=== PATIENT | male | born 1970 | race Caucasian/White ===

== ENCOUNTER → 2019-07-19 09:19 | Outpatient (CLI) | payer OTHER, SELFPAY ==
[2019-07-19 12:46] LABS: Absolute Lymphocyte Count 1.46 X10^3/uL (0.83-4.51); Basophil# 0.04 X10^3/uL; Basophil% 0.8 % (0-1); Eosinophil# 0.06 X10^3/uL; Eosinophils% 1.2 % (0-5); Hematocrit 41.1 % (40-54); Hemoglobin 13.6 g/dL (13.0-16.5); Lymphocyte # 1.46 X10^3/ul (4.0); Lymphocyte % 29.8 % (19-41); Mean Corp Hgb Conc 33.1 g/dL (32-36); Mean Corpuscular Hgb 29.4 pg (27.0-32.0); Mean Platelet Vol. 10.9 fl (6.2-12.0); Monocyte# 0.35 X10^3/uL; Monocyte% 7.1 % (0-10); NRBC Flagged by Analyzer 0 % (0-5); Neutrophil # 2.98 X10^3/uL (2.7-7.7); Neutrophil % 60.9 % (47-70); Platelet Count 204 K/mm3 (150-450); RBC Distribution Width CV 12.2 % (11.6-14.6); RBC Distribution Width SD 39.7 fl (35.1-43.9); Red Blood Count 4.62 M/mm3 (4.6-6.2); White Blood Count 4.9 K/mm3 (4.4-11.0)
[2019-07-19 13:11] LABS: ALB/GLOB Ratio 1.4 RATIO (0.9-2.4); AST(SGOT) 24 U/L (15-37); Alanine Aminotransfer ALT/SGPT 41 U/L (16-61); Alkaline Phosphatase 57 U/L (45-117); Anion Gap 6 (5-15); BUN 10 mg/dL (7-18); Calcium,Total 8.6 mg/dL (8.5-10.1); Chloride 108 mmol/L (98-107); Cholesterol 158 mg/dL (200); Creatinine, Serum 0.77 mg/dL (0.70-1.30); EST Glomerular Filtration Rate 113 mL/min (>60); Est Glom Filt Rate - Afr Amer 137 mL/min (>60); Globulin 2.8 g/dL (2.2-4.2); Glucose 102 mg/dL (74-106); High Density Lipoprotein 42 mg/dL; PSA,Total - Annual Screen 1.66 ng/mL (0.00-4.00); Potassium 4.4 mmol/L (3.5-5.1); Protein, Total 6.8 g/dL (6.4-8.2); Sodium Level 141 mmol/L (136-145); Triglycerides 102 mg/dL; Very Low Density Lipoprotein 20 mg/dL (5-40)
[2019-07-19 13:52] LABS: Hemoglobin A1c 5.4 % (4.2-6.3)
== END ==
PROVIDERS: PCP Family Medicine; Visit Provider Family Medicine
DX: Z00.00 Encounter for general adult medical examination without abnormal findings (principal); Z12.5 Encounter for screening for malignant neoplasm of prostate
CPT/HCPCS: 36415; 80053; 80061; 83036; 84153; 85025; G0103

== ENCOUNTER → 2019-11-19 11:23 | Outpatient (CLI) | payer OTHER, SELFPAY ==
[2015-12-24 21:30] VITALS: BMI 28.7
== END ==
PROVIDERS: PCP Family Medicine; Referring Provider Family Medicine; Visit Provider Family Medicine
DX: Z20.828 Contact with and (suspected) exposure to other viral communicable diseases (principal)
CPT/HCPCS: 87635; G2023; U0003

== ENCOUNTER → 2022-08-16 | Outpatient (CLI) | payer OTHER, SELFPAY ==
[2022-08-16 10:23] LABS: Absolute Lymphocyte Count 1.76 X10^3/uL (0.83-4.51); Absolute Neutrophil Count 2.8 X10^3/uL (2.0-7.7); Basophil# 0.03 X10^3/uL; Basophil% 0.6 % (0-1); Eosinophil# 0.08 X10^3/uL; Eosinophils% 1.6 % (0-5); Hematocrit 44.6 % (40-54); Hemoglobin 15.1 g/dL (13.0-16.5); Lymphocyte # 1.76 X10^3/ul (0.83-4.51); Lymphocyte % 34.7 % (19-41); Mean Corp Hgb Conc 33.9 g/dL (32-36); Mean Corpuscular Hgb 30.7 pg (27.0-32.0); Mean Corpuscular Volume 90.7 fL (80-94); Mean Platelet Vol. 10.3 fl (6.2-12.0); Monocyte# 0.41 X10^3/uL; Monocyte% 8.1 % (0-10); NRBC Flagged by Analyzer 0 % (0-5); Neutrophil # 2.79 X10^3/uL (2.7-7.7); Platelet Count 235 K/mm3 (150-450); RBC Distribution Width CV 12.1 % (11.6-14.6); RBC Distribution Width SD 40.3 fl (35.1-43.9); Red Blood Count 4.92 M/mm3 (4.6-6.2); White Blood Count 5.1 K/mm3 (4.4-11.0)
[2022-08-16 11:30] LABS: ALB/GLOB Ratio 1.3 RATIO (0.9-2.4); AST(SGOT) 38 U/L (15-37); Alanine Aminotransfer ALT/SGPT 59 U/L (16-61); Albumin, Serum 4.1 g/dL (3.2-5.0); Alkaline Phosphatase 59 U/L (45-117); Anion Gap 3 (5-15); BUN 11 mg/dL (7-18); BUN/Creat Ratio 14.4 RATIO (10-20); Chloride 105 mmol/L (98-107); Cholesterol 207 mg/dL (200); Creatinine, Serum 0.76 mg/dL (0.70-1.30); EST Glomerular Filtration Rate 114 mL/min (>60); Est Glom Filt Rate - Afr Amer 137 mL/min (>60); Globulin 3.1 g/dL (2.2-4.2); Glucose 102 mg/dL (74-106); High Density Lipoprotein 49 mg/dL; PSA,Total- Diagnostic 2.07 ng/mL (0.0-4.0); Potassium 4.4 mmol/L (3.5-5.1); Protein, Total 7.2 g/dL (6.4-8.2); Sodium Level 134 mmol/L (136-145); Thyroid Stim Hormone (TSH) 2.27 uIU/mL (0.358-3.74); Triglycerides 94 mg/dL; Very Low Density Lipoprotein 19 mg/dL (5-40)
[2022-08-16 11:31] LABS: Vitamin B12 357 pg/mL (211-911); Vitamin D,25 Hydroxy 23.9 ng/mL
[2022-08-20 14:17] LABS: Testosterone Free 5.6 pg/mL (7.2-24.0)
== END | disposition home or self-care (01) ==
PROVIDERS: PCP Family Medicine; Referring Provider Family Medicine; Visit Provider Family Medicine
DX: Z00.00 Encounter for general adult medical examination without abnormal findings (principal); R79.89 Other specified abnormal findings of blood chemistry; R53.83 Other fatigue
CPT/HCPCS: 36415; 80053; 80061; 82306; 82607; 84153; 84402; 84403; 84443; 85025

== ENCOUNTER → 2022-08-27 | Outpatient (CLI) | payer OTHER, SELFPAY ==
[2022-08-27 13:38] LABS: Ferritin 347 ng/mL (26-388); Follicle Stimulating Hormone 6.4 mIU/mL; Luteinizing Hormone 2.1 mIU/mL
[2022-09-02 09:07] LABS: Sex Hormone-binding Globulin 37.3 nmol/L (19.3-76.4); Testosterone, % Free 1.77 % (1.50-4.20); Testosterone, Free 4.66 ng/dL (5.00-21.00); Testosterone, Total 263 ng/dL (264-916)
== END | disposition home or self-care (01) ==
LOC: BFHLAB 08:25
PROVIDERS: PCP Family Medicine; Referring Provider Family Medicine; Visit Provider Family Medicine
DX: R79.89 Other specified abnormal findings of blood chemistry (principal)
CPT/HCPCS: 36415; 82728; 83001; 83002; 84270; 84402; 84403

== ENCOUNTER → 2023-01-23 | Outpatient (CLI) | payer OTHER, SELFPAY ==
--- NOTE | 2023-01-26 14:44 | STRESSREP ---
Stress Test Report Date: 01/23/2023 Procedure: Exercise tolerance test Indications: Fatigue Consent: Per the patient Procedure: The patient exercised on a Jerzy protocol for 13 minutes and 28 seconds achieving a peak heart rate of 179 bpm (107% predicted maximal heart rate) with a peak blood pressure 170/90 mmHg and a peak MET capacity of approximately 17.2 MET's. The baseline ECG demonstrated normal sinus rhythm. The peak exercise ECG demonstrated no significant ischemic changes. [There were no cardiac dysrhythmias pretest, during exercise, or recovery]. The functional capacity was considered excellent for age. The patient had no complaint of chest discomfort during exercise or recovery. The examination was discontinued secondary to []. Impression: 1. Technically adequate (percent predicted maximal heart rate greater than 85%) exercise tolerance test 2. Stress test is negative for exercise-induced chest pain. 3. Stress test test is negative for exercise-induced EKG changes of ischemia. 4. Functional capacity is excellent for age This note was generated with At[employer] software. It may contain incorrect words, spelling, and punctuation that were not noted in checking the note before signing.
== END | disposition home or self-care (01) ==
LOC: CVS 12:18
PROVIDERS: PCP Family Medicine; Referring Provider Family Medicine; Visit Provider Family Medicine
DX: R53.83 Other fatigue (principal); I10 Essential (primary) hypertension; Z82.49 Family history of ischemic heart disease and other diseases of the circulatory system
CPT/HCPCS: 93017

== ENCOUNTER → 2023-08-20 | Outpatient (CLI) | payer OTHER, SELFPAY ==
[2023-08-20 12:19] LABS: Basophil# 0.05 X10^3/uL; Basophil% 0.9 % (0-1); Eosinophil# 0.19 X10^3/uL; Eosinophils% 3.4 % (0-5); Hematocrit 44.2 % (40-54); Hemoglobin 14.4 g/dL (13.0-16.5); Mean Corp Hgb Conc 32.6 g/dL (32-36); Mean Corpuscular Hgb 29.3 pg (27.0-32.0); Mean Corpuscular Volume 89.8 fL (80-94); Mean Platelet Vol. 10.8 fl (6.2-12.0); Monocyte# 0.45 X10^3/uL; Monocyte% 8.1 % (0-10); NRBC Flagged by Analyzer 0 % (0-5); Neutrophil # 2.98 X10^3/uL (2.7-7.7); Neutrophil % 53.2 % (47-70); Platelet Count 232 K/mm3 (150-450); RBC Distribution Width CV 12.2 % (11.6-14.6); RBC Distribution Width SD 39.9 fl (35.1-43.9); Red Blood Count 4.92 M/mm3 (4.6-6.2); White Blood Count 5.6 K/mm3 (4.4-11.0)
[2023-08-20 12:40] LABS: ALB/GLOB Ratio 1.2 RATIO (0.9-2.4); AST(SGOT) 31 U/L (15-37); Alanine Aminotransfer ALT/SGPT 48 U/L (16-61); Albumin, Serum 3.8 g/dL (3.2-5.0); Alkaline Phosphatase 56 U/L (45-117); Anion Gap 4 (5-15); BUN 9 mg/dL (7-18); BUN/Creat Ratio 12.7 RATIO (10-20); Calcium,Total 9.1 mg/dL (8.5-10.1); Chloride 106 mmol/L (98-107); Cholesterol 179 mg/dL (200); Creatinine, Serum 0.71 mg/dL (0.70-1.30); EST Glomerular Filtration Rate 123 mL/min (>60); Est Glom Filt Rate - Afr Amer 149 mL/min (>60); Globulin 3.2 g/dL (2.2-4.2); Glucose 109 mg/dL (74-106); High Density Lipoprotein 40 mg/dL; PSA,Total - Annual Screen 4.53 ng/mL (0.00-4.00); Potassium 4.6 mmol/L (3.5-5.1); Sodium Level 137 mmol/L (136-145); Triglycerides 106 mg/dL; Very Low Density Lipoprotein 21 mg/dL (5-40)
[2023-08-20 12:47] LABS: Hemoglobin A1c 5.2 % (3.8-5.6)
[2023-08-21 14:11] LABS: Lipoprotein A 28.6 nmol/L (<75.0)
== END | disposition home or self-care (01) ==
LOC: BFHLAB 08:50
PROVIDERS: PCP Family Medicine; Referring Provider Family Medicine; Visit Provider Family Medicine
DX: Z00.00 Encounter for general adult medical examination without abnormal findings (principal); Z12.5 Encounter for screening for malignant neoplasm of prostate; E29.1 Testicular hypofunction; Z82.49 Family history of ischemic heart disease and other diseases of the circulatory system
CPT/HCPCS: 36415; 80053; 80061; 83036; 83695; 84153; 84403; 85025; G0103

== ENCOUNTER → 2023-08-22 | Outpatient (CLI) | payer OTHER, SELFPAY | END | disposition home or self-care (01) | LOC: LAB.FUTURE 13:12 | PROVIDERS: PCP Family Medicine; Visit Provider Family Medicine | DX: E29.1 Testicular hypofunction (principal); R97.20 Elevated prostate specific antigen [PSA] ==

== ENCOUNTER → 2023-11-03 | Outpatient (CLI) | payer OTHER, SELFPAY ==
[2023-11-03 12:29] LABS: PSA,Total- Diagnostic 1.85 ng/mL (0.0-4.0)
== END | disposition home or self-care (01) ==
LOC: MTLAB 09:12
PROVIDERS: PCP Family Medicine; Referring Provider Family Medicine; Visit Provider Family Medicine
DX: E29.1 Testicular hypofunction (principal); R97.20 Elevated prostate specific antigen [PSA]
CPT/HCPCS: 36415; 84153; 84403

== ENCOUNTER 2023-12-24 17:33 | Inpatient (IN) | payer OTHER, SELFPAY ==
[2023-12-24] VITALS (10 sets, daily range): BP systolic 118–155; BP diastolic 83–100; PULSE 64–85; RESP 14–18; TEMP 36.1–37.3; O2SAT 96–100; BMI 30.3; BMI 29.8
--- NOTE | 2023-12-24 17:39 | NURSING ---
NO OLD EKG
--- NOTE | 2023-12-24 18:37 | ED.VIS.CHEST ---
HPI History of Present Illness Chief Complaint: Chest Pain Informant: patient Onset/Context/Timing Onset: Today Activity at onset: sudden Timing: Continuous Quality: Positive for Burning and Tightness Location: Left Parasternal, Left Chest and - (Left axilla, left upper arm, and neck) Worsened By: Nothing Relieved By: Nothing Associated Symptoms: Negative for Nausea, Vomiting, Diaphoresis, Dyspnea, Cough, Fever, Lightheadedness, Acid Reflux or Palpitations Narrative Narrative: Patient presents with chest pain that began today. Patient states it began rather suddenly. Patient states he noticed it in his left arm and axilla initially. Patient states that it progressed to the left side of his chest. Patient states it radiates up into his neck. Patient describes it as burning and tightness. Patient states nothing makes it better and nothing makes it worse. Patient states he checked his blood pressure at home and noticed that it was high. Patient denies any shortness of breath or cough. Patient denies any nausea or vomiting. Patient denies any lightheadedness or diaphoresis. Patient denies any palpitations. CVD Risk Factors: Positive for Hypertension and Family History 1' </=55; Negative for Diabetes, Hypercholesterolemia or Smoking PE Risk Factors: Negative for Recent Travel/Surgery, Recent Immobilization, Prior DVT or PE, Cancer or OCP + Smoking + >/=35 [facility] Medical History (Updated 12/24/23 @ 22:[address] Sonali Flores DO) Low testosterone Hypertension Home Medications ?Medication ?Instructions ?Recorded ?Last Taken ?Type lisinopril 10 mg tablet 10 mg PO DAILY 12/24/23 Unknown History testosterone 2 - 3 pump topical DAILY 12/24/23 Unknown History Allergy/AdvReac Type Severity Reaction Status Date / Time prochlorperazine (From AdvReac Other Verified 12/24/23 17:33 Compazine) Surgical History (Updated 12/24/23 @ 18:[address] Carlin Haywood DO) S/P LASIK surgery Social History Smoking Status: Never smoker ROS ROS ED Constitutional Constitutional ED: Denies chills or fever(s) Eyes Eyes: Denies blurry vision or change in vision ENT ENT ED: Denies rhinorrhea or sore throat Cardiovascular Cardiovascular: Reports chest pain; Denies palpitations Respiratory/Chest Respiratory/Chest: Denies cough or dyspnea Gastrointestinal Gastrointestinal: Denies nausea or vomiting Genitourinary Genitourinary ED: Denies dysuria or hematuria Musculoskeletal Musculoskeletal: Reports neck pain; Denies back pain Integumentary Denies abscess or rash Neurologic Neurologic: Denies headache(s) or weakness Allergic/Immunologic Allergic/Immunologic ED: Denies mouth swelling or urticaria EXAM Physical Exam Const Vital Signs: 12/24/23 17:33 12/24/23 18:33 12/24/23 19:00 Temperature 97 F L Temperature Source Temporal Pulse Rate 85 79 69 Respiratory Rate 18 18 Blood Pressure 145/95 H 155/100 H 125/94 H Blood Pressure Mean 111 118 104 Pulse Ox 100 97 98 Oxygen Delivery Method Room Air Room Air Room Air 12/24/23 19:14 12/24/23 20:00 12/24/23 21:00 Temperature Temperature Source Pulse Rate 70 74 Respiratory Rate 18 16 Blood Pressure 129/92 H 118/90 H Blood Pressure Mean 104 99 Pulse Ox 98 98 96 Oxygen Delivery Method Room Air Room Air Room Air Positive well nourished and well developed General Appearance ED: well developed and NAD HEENT Reports moist mucous membranes Neck supple and no JVD Resp normal respiratory effort and clear to auscultation bilaterally Cardio regular rate and regular rhythm GI soft to palpation, non-tender and non-distended Extremity normal to inspection General Extremety ED: Negative for edema or tenderness General Extremity: Negative for edema Neuro oriented x3, CN's II-XII intact bilaterally and no sensory deficits noted Sensorium / Orientation: awake and alert Motor Exam: strength 5/5 throughout Psych mental status grossly normal Heart Score History: Moderately Suspicious ECG: Normal Age: >45 - <65 years Risk Factors: 1 or 2 Risk Factors Troponin: >1 - <3 Normal Limit Score: 4 MDM MDM MDM Narrative Medical decision making narrative: Differential diagnose includes cardiac dysrhythmia, cardiac ischemia, electrolyte abnormality, pneumonia, pneumothorax, hypertension, GERD, and anxiety. EKG will be obtained to assess for cardiac dysrhythmia and cardiac ischemia. Chest x-ray will be obtained to assess for pneumonia and pneumothorax. CBC will be obtained to assess for leukocytosis and anemia. Basic metabolic profile will be obtained to assess for electrolyte abnormality and renal function. High-sensitivity troponin will be obtained to assess for cardiac ischemia. 2-hour repeat high-sensitivity troponin will be obtained to assess for ongoing cardiac ischemia. Lab Data Attestation: I reviewed the patient's lab results. Lab results narrative: CBC was reviewed and was within normal limits. Basic metabolic profile was reviewed. Potassium was slightly low at 3.4. The remainder is within normal limits. Initial high-sensitivity troponin was reviewed and was normal at 8. 2-hour repeat high-sensitivity troponin was reviewed and was elevated at 173. Labs: Laboratory Results - last 24 hr 12/24/23 12/24/23 17:44 20:55 WBC 8.5 RBC 4.89 Hgb 14.4 Hct 43.0 MCV 87.9 MCH 29.4 MCHC 33.5 RDW Std Deviation 38.3 RDW Coeff of Antolin 11.9 Plt Count 245 MPV 11.0 Immature Gran % (Auto) 0.200 Neut % (Auto) 57.8 Lymph % (Auto) 32.2 [place] % (Auto) 7.3 Eos % (Auto) 1.9 Baso % (Auto) 0.6 Absolute Neuts (auto) 4.9 Absolute Lymphs (auto) 2.74 Nucleated RBC % 0 Sodium 138 Potassium 3.4 L Chloride 104 Carbon Dioxide 29.0 Anion Gap 5 BUN 14 Creatinine 0.84 Estim Creat Clear Calc 116.88 Est GFR (MDRD) Af Amer 121 Est GFR (MDRD) Non-Af 100 BUN/Creatinine Ratio 16.6 Glucose 111 H Calcium 9.5 Troponin I High Sens 8 173 H* Radiography Chest X-Ray - ED: 1 View, Read by ED Physician, Read by Radiologist and No Acute Disease Diagnostic Testing: Clinical Impression(s) from Imaging Studies Chest X-Ray 12/24/23 18:54 IMPRESSION: Normal x-ray examination of the chest. Electronically Signed: Kush Goyal MD at 19:36 EDT , Portable 1 view chest x-ray was obtained. On my independent interpretation, lung santos are clear. There is normal cardiac silhouette. Bony thorax is normal. There is no acute process noted. Radiologist also interpreted the x-ray and agrees. EKG Initial EKG: Attestation: I personally reviewed and interpreted this EKG as follows: Interpretation: Sinus Rhythm (77) and No Acute Injury Pattern Comments: EKG was obtained. On my independent interpretation, it showed a normal sinus rhythm with a rate of 77. ND interval, QRS interval, and QTc intervals were all normal. [place] was normal. There are no acute ST or T wave changes. Prior EKG tracings: not available for review Prior: No Prior Management Discussion w/another healthcare provider: Hospitalist (Dr. Flores) and Loading Inspector (Dr. Martinez) Treatment and Re-Evaluation :: Patient was given aspirin here. Patient did have a stress test approximately 11 months ago which was normal. Patient was advised of his findings. Patient still denies any pain, pressure, heaviness, tightness, or discomfort of any kind at this time. Patient has a HEART score of 4. Case was discussed with Dr. Martinez, wood grainer on-call. He recommended starting the patient on heparin. Case was discussed with the hospitalist for admission. She will admit the patient to PCU. Patient understood and was agreeable with the plan. All questions were answered. Discharge Plan Dx/Rx/DC Orders Clinical Impression: Chest pain, Hypertension, Elevated troponin Disposition Disposition: Acute Care Hospital [facility]
--- NOTE | 2023-12-24 18:44 | EKG12_ITS ---
Test Reason : CP Blood Pressure : / mmHG Vent. Rate : 077 BPM Atrial Rate : 077 BPM P-R Int : 166 ms QRS Dur : 098 ms QT Int : 362 ms P-R-T Axes : 040 033 020 degrees QTc Int : 409 ms Normal sinus rhythm Normal ECG Confirmed by RICKEY JACKSON, GABBY ([id number]), film and video editor [employer] ([id number]) on 12/26/2023 6:49:47 AM Referred By: MARY/YOLY Confirmed By:VARGHESE LANG MD
[2023-12-24] MEDS: Aspirin 81 MG TAB.CHEW 324 MG PO (18:51)
[2023-12-24 18:54] LABS: Absolute Lymphocyte Count 2.74 X10^3/uL (0.83-4.51); Absolute Neutrophil Count 4.9 X10^3/uL (2.0-7.7); Basophil# 0.05 X10^3/uL; Basophil% 0.6 % (0-1); Eosinophil# 0.16 X10^3/uL; Eosinophils% 1.9 % (0-5); Hemoglobin 14.4 g/dL (13.0-16.5); Lymphocyte # 2.74 X10^3/ul (0.83-4.51); Lymphocyte % 32.2 % (19-41); Mean Corp Hgb Conc 33.5 g/dL (32-36); Mean Corpuscular Hgb 29.4 pg (27.0-32.0); Mean Corpuscular Volume 87.9 fL (80-94); Monocyte# 0.62 X10^3/uL; Monocyte% 7.3 % (0-10); NRBC Flagged by Analyzer 0 % (0-5); Neutrophil # 4.92 X10^3/uL (2.7-7.7); Neutrophil % 57.8 % (47-70); Platelet Count 245 K/mm3 (150-450); RBC Distribution Width CV 11.9 % (11.6-14.6); RBC Distribution Width SD 38.3 fl (35.1-43.9); Red Blood Count 4.89 M/mm3 (4.6-6.2); White Blood Count 8.5 K/mm3 (4.4-11.0)
--- NOTE | 2023-12-24 18:54 | RAD_ITS ---
STUDY: X-RAY CHEST REASON FOR EXAM: Male, 53 years old. chest pain TECHNIQUE: Single AP portable view of the chest. COMPARISON: None. FINDINGS: The lungs are clear and expanded. There is no demonstrated pleural abnormality. Normal size heart. Normal mediastinum and don. Normal visualized pulmonary arteries. Normal visualized aortic arch and descending thoracic aorta. Normal visualized thoracic spine. Normal visualized ribs, clavicles, and shoulders. There is no demonstrated abnormality of the visualized soft tissue structures of the upper abdomen. RAD/Chest 1 View (Portable) IMPRESSION: Normal x-ray examination of the chest. Electronically Signed: Kush Goyal MD at 19:36 EDT ,
[2023-12-24 19:12] LABS: Anion Gap 5 (5-15); BUN 14 mg/dL (7-18); BUN/Creat Ratio 16.6 RATIO (10-20); Calcium,Total 9.5 mg/dL (8.5-10.1); Chloride 104 mmol/L (98-107); Creatinine, Serum 0.84 mg/dL (0.70-1.30); EST Glomerular Filtration Rate 100 mL/min (>60); Est Glom Filt Rate - Afr Amer 121 mL/min (>60); Estimated Creatinine Clearance 116.88 ml/min; Glucose 111 mg/dL (74-106); Potassium 3.4 mmol/L (3.5-5.1); Sodium Level 138 mmol/L (136-145); Troponin-I HS (w/2H Reflex) 8 pg/mL (3.0-78.0)
[2023-12-24 20:51] LABS: Reflex Troponin-HS? (from REC) Y
[2023-12-24 21:40] LABS: Troponin-I HS 173 pg/mL (3.0-78.0)
[2023-12-24] MEDS: Heparin Injection (Vial) 5,000 UNIT/ML VIAL 4000 UNIT IV (22:46)
[2023-12-24] MEDS: HEPARIN/D5w 25,000 UNITS 25,000 UNITS/250 ML IV.SOLN. 10 UNITS CONT INF (22:49)
--- NOTE | 2023-12-24 22:54 | PCM.HP.STD ---
HPI - General General Date of Admission: 12/24/23 Date of Service: 12/17/23 Chief Complaint: Chest pain HPI Narrative ABDELRAHMAN CHA, is a 53 M who presented to the emergency department at [facility] on 12/24/2023 with a chief complaint of chest pain. 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 Initially, was chest pain and then he noticed radiation to his left arm. He stated that his left arm pain got quite intense. He had some associated shortness of breath and that he had trouble taking a deep breath. He denies any nausea, vomiting or diaphoresis. He went home from work and took his blood pressure and it was noted to be markedly high compared to his typical baseline. He stated he changed close and came to the emergency department. He currently is chest pain-free. He has an extremely strong family history of coronary disease in his father and cerebrovascular disease on his mother side. His brother from a neuroendocrine tumor at 44 years old. He states his father had his first stenting he believes in his 50s. He does not smoke. Vital signs on presentation showed temperature of 97, heart rate 85, respiratory rate 18, blood pressure is 145/95 pulse ox 100% on room air. Repeat blood pressure after being here sometime is not 118/90. CBC is unremarkable. Coags are pending. Chemistry panel shows mild hypokalemia with potassium of 3.5 but is otherwise unremarkable. Blood glucose was 111 with a recent hemoglobin A1c in August of 5.2. Initial troponin was 8 however delta troponin went up to 173. EKG shows normal sinus rhythm with normal intervals and no ST-T wave changes concerning for acute ischemia. Chest x-ray is unremarkable. Heparin drip was started by the emergency department and aspirin was given. Case was discussed with Dr. Martinez and he will see the patient for probable cardiac catheterization tomorrow. [facility], [facility] Medical History Low testosterone Hypertension Home Medications ?Medication ?Instructions ?Recorded ?Last Taken ?Type lisinopril 10 mg tablet 10 mg PO DAILY 12/24/23 Unknown History testosterone 2 - 3 pump topical DAILY 12/24/23 Unknown History Allergy/AdvReac Type Severity Reaction Status Date / Time prochlorperazine (From AdvReac Other Verified 12/24/23 17:33 Compazine) Family History (Updated 12/24/23 @ 23:[address] Sonali Flores DO) Brother No problems noted. Other CVA (cerebral vascular accident) Cancer Heart disease Hypertension Surgical History S/P LASIK surgery Social History (Updated 12/24/23 @ 23:[address] Sonali Flores DO) household members: spouse housing: house Smoking Status: Never smoker alcohol intake: current alcohol intake frequency: holidays/special occasions only substance use type: does not use ROS Constitutional Constitutional: Denies anorexia, change in weight, chills, fatigue, fever(s), malaise, night sweats, weakness or other Eyes Eyes: Denies blurry vision, change in eye color, change in vision, discharge from eye(s), double vision, erythema, eye pain, loss of vision or other ENT HEENT: Denies abnormal hearing, dysphagia, ear pain, epistaxis, headache(s), hearing loss, nasal congestion, nasal discharge, post nasal drip, sinus pressure, sore throat or other Cardiovascular Cardiovascular: Reports chest pain and other Details: Left arm pain ; Denies claudication, dyspnea on exertion, edema, lightheadedness, orthopnea, palpitations, paroxysmal nocturnal dyspnea, rapid heart rate or syncope Respiratory/Chest Respiratory/Chest: Reports shortness of breath at rest; Denies cough, dyspnea, excessive phlegm production, hemoptysis, productive cough, shortness of breath with exertion, wheezing or other Gastrointestinal Gastrointestinal: Denies abdominal pain, coffee ground emesis, constipation, diarrhea, dyspepsia, hematemesis, hematochezia, loose stools, melena, nausea, vomiting or other Genitourinary Genitourinary: Denies burning urination, difficulty urinating, dysuria, hematuria, nocturia, urinary frequency, urinary hesitancy, urinary incontinence, urinary urgency or other Musculoskeletal Musculoskeletal: Denies arthralgias, back pain, joint pain, joint stiffness, joint swelling, myalgias, neck pain or other Neurologic Neurologic: Denies abnormal gait, abnormal speech, confusion, disequilibrium, dizziness, focal weakness, headache(s), numbness, paresthesias, seizure-like activity, seizures, syncope, tingling, tremor(s) or other Psychiatric Psychiatric: Denies anxiety, depression, homicidal ideation, suicidal ideation or other Endocrine Endocrinology: Denies change in body appearance, cold intolerance, excessive sweating, heat intolerance, polydipsia, polyuria or other Hematologic/Lymphatic Hematologic/Lymphatic: Denies anemia, easy bleeding, easy bruising, lymphadenopathy or other Allergic/Immunologic Allergic/Immunologic: Denies rhinitis, hives, eczemia, asthma or other Vital Signs Vital Signs Vital Signs: 12/24/23 17:33 12/24/23 18:33 12/24/23 19:00 Temperature 97 F L Temperature Source Temporal Pulse Rate 85 79 69 Respiratory Rate 18 18 Blood Pressure 145/95 H 155/100 H 125/94 H Blood Pressure Mean 111 118 104 Pulse Ox 100 97 98 Oxygen Delivery Method Room Air Room Air Room Air 12/24/23 19:14 12/24/23 20:00 12/24/23 21:00 Temperature Temperature Source Pulse Rate 70 74 Respiratory Rate 18 16 Blood Pressure 129/92 H 118/90 H Blood Pressure Mean 104 99 Pulse Ox 98 98 96 Oxygen Delivery Method Room Air Room Air Room Air 12/24/23 22:00 Temperature Temperature Source Pulse Rate 79 Respiratory Rate 16 Blood Pressure 144/85 H Blood Pressure Mean 104 Pulse Ox 98 Oxygen Delivery Method Room Air Weight Weight: 96 kg Body Mass Index (BMI) 30.3 Physical Exam Const alert, oriented x3, no apparent distress and well nourished; Negative for average body habitus Constitutional Narrative: Obese, middle-aged, white male, sitting up in bed, appears comfortable, nontoxic HEENT normocephalic, head/scalp atraumatic, hearing grossly normal bilaterally and moist oral mucous membranes HEENT Narrative: Mallampati 2, no thrush, dentition is good Eyes PERRL and EOMs intact bilaterally Eyes Narrative: No scleral icterus Neck no lymphadenopathy and supple Neck Narrative: Trachea midline, no thyroid enlargement Resp normal respiratory effort, no retractions, no use of accessory muscles and clear to auscultation bilaterally Auscultation: Negative for rales, rhonchi or wheezes Cardio regular rate, regular rhythm, S1 normal heart sound, S2 normal heart sound, no murmurs, no rub, no gallops and no clicks GI normal to inspection, nondistended, normoactive bowel sounds, soft to palpation and non-tender Extremity no clubbing, cyanosis or edema Extremity Narrative: Pedal pulses are 2+ Neuro oriented x3 and moves all extremities Speech: speech normal Psych affect normal Psych Narrative: Eye contact is good patient interacts appropriately Results Lab / Micro Data 12/24/23 17:44 12/24/23 17:44 Labs: Laboratory Results - last 24 hr 12/24/23 17:44: WBC 8.5, RBC 4.89, Hgb 14.4, Hct 43.0, MCV 87.9, MCH 29.4, MCHC 33.5, RDW Std Deviation 38.3, RDW Coeff of Antolin 11.9, Plt Count 245, MPV 11.0, Immature Gran % (Auto) 0.200, Neut % (Auto) 57.8, Lymph % (Auto) 32.2, [place] % (Auto) 7.3, Eos % (Auto) 1.9, Baso % (Auto) 0.6, Absolute Neuts (auto) 4.9, Absolute Lymphs (auto) 2.74, Nucleated RBC % 0, Sodium 138, Potassium 3.4 L, Chloride 104, Carbon Dioxide 29.0, Anion Gap 5, BUN 14, Creatinine 0.84, Estim Creat Clear Calc 116.88, Est GFR (MDRD) Af Amer 121, Est GFR (MDRD) Non-Af 100, BUN/Creatinine Ratio 16.6, Glucose 111 H, Calcium 9.5, Troponin I High Sens 8 12/24/23 20:55: Troponin I High Sens 173 H* Imaging Radiology Impression Chest X-Ray 12/24/23 18:54 IMPRESSION: Normal x-ray examination of the chest. Electronically Signed: Kush Goyal MD at 19:36 EDT , Assessment & Plan Assessment/Plan (1) Chest pain: (2) Elevated troponin: (3) Hypokalemia: PLAN: Plan NSTEMI -Patient with very strong history of coronary disease in his father at a young age -Patient with chest pain and initial troponin of 8 with a delta of 173 -EKG without changes -Full dose aspirin given the emergency department and heparin drip initiated -Will continue heparin drip -Aspirin 81 mg daily -High intensity of statin -Start metoprolol 25 mg p.o. twice daily and continue home lisinopril -Check lipids -Patient had recent hemoglobin A1c 08/2023 and it was 5.2 -Check echocardiogram -Cardiology consult-ED discussed with Dr. Martinez prior to admission Hypokalemia -Potassium was 3.4 on admission -Replete with 40 mill equivalents p.o. potassium -Repeat lab in a.m. -Check a.m. magnesium level Hypertension -Continue home lisinopril 10 mg daily -Add metoprolol 25 mg p.o. twice daily -Monitor while hospitalized Low testosterone -Hold home topical testosterone DVT prophylaxis -Heparin drip CODE STATUS Full code Charges/Coding Visit Charges Inpatient E&M: 97105 Init Hosp L2
[2023-12-24 23:23] LABS: International Normalized Ratio 1.1; Prothrombin Time (Protime)PT. 14.6 SECONDS (11.7-14.9)
[2023-12-24 23:24] LABS: Partial Thromboplast Time 26.8 Seconds (24.1-36.2)
--- NOTE | 2023-12-24 23:34 | EKG12_ITS ---
Test Reason : CP ADMIT Blood Pressure : / mmHG Vent. Rate : 072 BPM Atrial Rate : 072 BPM P-R Int : 176 ms QRS Dur : 096 ms QT Int : 386 ms P-R-T Axes : 047 038 016 degrees QTc Int : 422 ms Normal sinus rhythm Normal ECG When compared with ECG of 24-DEC-2023 17:38, MANUAL COMPARISON REQUIRED, DATA IS UNCONFIRMED Confirmed by RICKEY JACKSON, GABBY ([id number]), editorial intern [employer] ([id number]) on 12/26/2023 7:16:26 AM Referred By: Confirmed By:VARGHESE LANG MD
[2023-12-25] VITALS (10 sets, daily range): BP systolic 113–148; BP diastolic 82–90; PULSE 69–77; RESP 12–22; TEMP 36.7–36.8; O2SAT 96–98
[2023-12-25] MEDS: Potassium Chloride Oral Tablet 20 MEQ 40 MEQ PO (00:02)
[2023-12-25 01:02] LABS: Troponin-I HS 6914 pg/mL (3.0-78.0)
[2023-12-25 04:58] LABS: Absolute Lymphocyte Count 2.82 X10^3/uL (0.83-4.51); Basophil# 0.04 X10^3/uL; Basophil% 0.5 % (0-1); Eosinophil# 0.14 X10^3/uL; Eosinophils% 1.9 % (0-5); Hematocrit 41.2 % (40-54); Lymphocyte # 2.82 X10^3/ul (0.83-4.51); Lymphocyte % 37.4 % (19-41); Mean Corpuscular Hgb 29.9 pg (27.0-32.0); Mean Corpuscular Volume 87.8 fL (80-94); Mean Platelet Vol. 10.3 fl (6.2-12.0); Monocyte% 6.6 % (0-10); NRBC Flagged by Analyzer 0 % (0-5); Neutrophil # 4.03 X10^3/uL (2.7-7.7); Neutrophil % 53.3 % (47-70); Platelet Count 220 K/mm3 (150-450); RBC Distribution Width SD 38.3 fl (35.1-43.9); Red Blood Count 4.69 M/mm3 (4.6-6.2); White Blood Count 7.6 K/mm3 (4.4-11.0)
[2023-12-25 05:08] LABS: Partial Thromboplast Time 42.9 Seconds (24.1-36.2)
[2023-12-25 05:16] LABS: ALB/GLOB Ratio 1.4 RATIO (0.9-2.4); AST(SGOT) 51 U/L (15-37); Alanine Aminotransfer ALT/SGPT 43 U/L (16-61); Albumin, Serum 3.7 g/dL (3.2-5.0); Alkaline Phosphatase 49 U/L (45-117); Anion Gap 5 (5-15); BUN 10 mg/dL (7-18); BUN/Creat Ratio 15.5 RATIO (10-20); Calcium,Total 9.1 mg/dL (8.5-10.1); Chloride 109 mmol/L (98-107); Cholesterol 176 mg/dL (200); Creatinine, Serum 0.65 mg/dL (0.70-1.30); EST Glomerular Filtration Rate 136 mL/min (>60); Est Glom Filt Rate - Afr Amer 165 mL/min (>60); Globulin 2.7 g/dL (2.2-4.2); Glucose 112 mg/dL (74-106); High Density Lipoprotein 46 mg/dL; Potassium 3.7 mmol/L (3.5-5.1); Protein, Total 6.4 g/dL (6.4-8.2); Sodium Level 140 mmol/L (136-145); Triglycerides 107 mg/dL; Very Low Density Lipoprotein 21 mg/dL (5-40)
--- NOTE | 2023-12-25 05:55 | ECHOCS_ITS ---
Reason For Study: CHEST PAIN Procedure This was a 2D Doppler, Color Flow transthoracic echocardiogram. The study was technically difficult. Due to poor accoustic windows. Contrast injection was performed. Exam performed portable in patient room. Left Ventricle Normal LV size. The estimated ejection fraction is 55 %. No evidence for diastolic dysfunction. No regional wall motion abnormalities noted. Right Ventricle Normal RV size. Normal systolic function. Atria The left and right atria are normal. Aneurysmal atrial septum. No doppler evidence for ASD. Bubble contrast study negative for right to left interatrial shunt. Mitral Valve There is mild to moderate mitral annular calcification. There is no mitral valve stenosis. No mitral valve insufficiency. Tricuspid Valve There is no tricuspid stenosis. Pulmonary artery systolic pressure is 25 mmHg. Trivial tricuspid valve insufficiency. Aortic Valve Trisinus/trileaflet aortic valve. There is no aortic stenosis. No aortic valve insufficiency. Pulmonic Valve There is no pulmonic valvular stenosis. Trivial pulmonic valve insufficiency. Great Vessels Normal aortic root. Pericardium/Pleural No pericardial effusion. Medication Diluted definity 2.0ml given slow IV push to enhance endocardial definition. Performed a rapid injection of agitated mix of 9 cc saline and 1cc air to assess for atrial septal defect. MMode/2D Measurements & Calculations LVIDd: 5.6 cm IVSd: 0.89 cm Ao root diam: 3.5 cm LVIDs: 3.5 cm LVPWd: 0.93 cm RVDd: 3.3 cm FS: 37.9 % LAV(MOD-bp): 56.2 ml LVAd ap4: 31.9 cm2 LVAd ap2: 25.3 cm2 LAV(MOD-bp) Indexed: 26.4 ml/m2 LVLd ap4: 8.4 cm LVLd ap2: 8.5 cm LAV(MOD-sp2): 64.5 ml EDV(MOD-sp4): 101.7 ml EDV(MOD-sp2): 62.1 ml LAV(MOD-sp4): 50.3 ml EDV(sp4-el): 102.3 ml EDV(sp2-el): 63.5 ml LVAs ap4: 18.9 cm2 LVAs ap2: 15.0 cm2 LVLs ap4: 6.9 cm LVLs ap2: 6.8 cm ESV(MOD-sp4): 43.8 ml ESV(MOD-sp2): 26.8 ml ESV(sp4-el): 44.1 ml ESV(sp2-el): 28.0 ml EF(MOD-sp4): 56.9 % EF(MOD-sp2): 56.8 % EF(sp4-el): 56.9 % SV(MOD-sp4): 57.9 ml SV(MOD-sp2): 35.3 ml SV(sp4-el): 58.2 ml LA A4 area: 18.2 cm2 LA dimension(2D): 3.4 cm RA A4 area: 13.5 cm2 TAPSE: 2.2 cm Time Measurements MV dec time: 0.18 sec Doppler Measurements & Calculations MV E max juan j: 59.9 cm/sec Lat Peak E' Juan J: 7.7 cm/sec Med Peak E' Juan J: 8.0 cm/sec MV A max juan j: 56.9 cm/sec E/E' lat: 7.8 E/E' med: 7.5 MV E/A: 1.1 MV V2 max: 60.7 cm/sec MV P1/2t max juan j: 63.6 cm/sec Ao V2 max: 110.8 cm/sec MV max P.5 mmHg MV P1/2t: 57.2 msec Ao max P.9 mmHg MV V2 mean: 35.3 cm/sec Ao V2 mean: 79.5 cm/sec MV mean P.58 mmHg MV dec slope: 326.0 cm/sec2 Ao mean P.9 mmHg MV V2 VTI: 16.9 cm MVA(P1/2t): 3.8 cm2 Ao V2 VTI: 24.5 cm AV (velocity ratio): 0.74 LV V1 max: 87.5 cm/sec PA V2 max: 100.6 cm/sec PI dec slope: 84.3 cm/sec2 LV V1 max P.1 mmHg PA V2 mean: 71.1 cm/sec LV V1 mean P.6 mmHg LV V1 mean: 59.7 cm/sec LV V1 VTI: 18.2 cm TR max juan j: 225.3 cm/sec TR max P.3 mmHg ECHO/Echo Complete W/ Contrast Interpretation Summary The estimated ejection fraction is 55 %. No evidence for diastolic dysfunction. Ordering Physician: Sonali Flores Referring Physician: Jamarcus Tracey Performed By: Teresita Morley, MATTHEW, RVT
[2023-12-25] MEDS: Aspirin E.C. 81 MG Tablet PO (06:19)
[2023-12-25] MEDS: Lisinopril 10 MG Tablet PO (06:19)
[2023-12-25] MEDS: Metoprolol Tartrate 25 MG Tablet PO (06:19)
--- NOTE | 2023-12-25 06:47 | PN.HOSP_ITS ---
Reason for Visit Reason for Visit: Diagnoses Hypokalemia (12/24/23) Chest pain, unspecified (12/24/23) Other specified abnormal findings of blood chemistry (12/24/23) Objective Data Objective Data Vital Signs: Vital Signs Temp Pulse Resp BP Pulse Ox O2 Del Method 98.2 F 77 16 131/90 H 97 Room Air 12/25/23 06:25 12/25/23 06:25 12/25/23 06:25 12/25/23 06:25 12/25/23 06:25 12/25/23 06:25 Oxygen Delivery Method Room Air Weight: 207 lb 14.334 oz Body Mass Index (BMI) 29.8 Intake & Output: Intake and Output for Last 24 Hours 12/23/23 12/24/23 12/25/23 23:59 23:59 23:59 Intake Total 75.5 / 75.5 Balance 75.5 / 75.5 Lab / Micro Data 12/25/23 04:49 12/25/23 04:49 Labs: Laboratory Results - last 24 hr 12/24/23 17:44: WBC 8.5, RBC 4.89, Hgb 14.4, Hct 43.0, MCV 87.9, MCH 29.4, MCHC 33.5, RDW Std Deviation 38.3, RDW Coeff of Antolin 11.9, Plt Count 245, MPV 11.0, Immature Gran % (Auto) 0.200, Neut % (Auto) 57.8, Lymph % (Auto) 32.2, [place] % (Auto) 7.3, Eos % (Auto) 1.9, Baso % (Auto) 0.6, Absolute Neuts (auto) 4.9, Absolute Lymphs (auto) 2.74, Nucleated RBC % 0, Sodium 138, Potassium 3.4 L, Chloride 104, Carbon Dioxide 29.0, Anion Gap 5, BUN 14, Creatinine 0.84, Estim Creat Clear Calc 116.88, Est GFR (MDRD) Af Amer 121, Est GFR (MDRD) Non-Af 100, BUN/Creatinine Ratio 16.6, Glucose 111 H, Calcium 9.5, Troponin I High Sens 8 12/24/23 20:55: Troponin I High Sens 173 H* 12/24/23 22:49: PT 14.6, INR 1.1, APTT 26.8 12/24/23 23:59: Troponin I High Sens 6914 H* 12/25/23 04:49: WBC 7.6, RBC 4.69, Hgb 14.0, Hct 41.2, MCV 87.8, MCH 29.9, MCHC 34.0, RDW Std Deviation 38.3, RDW Coeff of Antolin 12.0, Plt Count 220, MPV 10.3, Immature Gran % (Auto) 0.300, Neut % (Auto) 53.3, Lymph % (Auto) 37.4, [place] % (Auto) 6.6, Eos % (Auto) 1.9, Baso % (Auto) 0.5, Absolute Neuts (auto) 4.0, Absolute Lymphs (auto) 2.82, Nucleated RBC % 0, APTT 42.9 H, Sodium 140, Potassium 3.7, Chloride 109 H, Carbon Dioxide 26.0, Anion Gap 5, BUN 10, C reatinine 0.65 L, Estim Creat Clear Calc 149.80, Est GFR (MDRD) Af Amer 165, Est GFR (MDRD) Non-Af 136, BUN/Creatinine Ratio 15.5, Glucose 112 H, Calcium 9.1, Phosphorus 4.0, Magnesium 2.0, Total Bilirubin 1.60 H, AST 51 H, ALT 43, Alkaline Phosphatase 49, Total Protein 6.4, Albumin 3.7, Globulin 2.7, Albumin/Globulin Ratio 1.4, Triglycerides 107, Cholesterol 176, LDL Cholesterol 109, VLDL Cholesterol 21, HDL Cholesterol 46 Radiography Diagnostic Testing: Radiology Impression Chest X-Ray 12/24/23 18:54 IMPRESSION: Normal x-ray examination of the chest. Electronically Signed: Kush Goyal MD at 19:36 EDT , Assessment & Plan Assessment/Plan (1) Chest pain: (2) Elevated troponin: (3) Hypokalemia: PLAN: Plan NSTEMI -Patient with very strong history of coronary disease in his father at a young age -Patient with chest pain and initial troponin of 8 with a delta of 173 -EKG without changes -Full dose aspirin given the emergency department and heparin drip initiated -Will continue heparin drip -Aspirin 81 mg daily -High intensity of statin -Start metoprolol 25 mg p.o. twice daily and continue home lisinopril -Check lipids -Patient had recent hemoglobin A1c 08/2023 and it was 5.2 -Check echocardiogram -Cardiology consult-ED discussed with Dr. Martinez prior to admission Hypokalemia -Potassium was 3.4 on admission -Replete with 40 mill equivalents p.o. potassium -Repeat lab in a.m. -Check a.m. magnesium level Hypertension -Continue home lisinopril 10 mg daily -Add metoprolol 25 mg p.o. twice daily -Monitor while hospitalized Low testosterone -Hold home topical testosterone DVT prophylaxis -Heparin drip CODE STATUS Full code
--- NOTE | 2023-12-25 09:01 | CASEMGMT ---
[facility]urance [facility] as follows: [facility], NIKKI Hannah, [facility], [facility] ([facility]), and . Luma Cordova, Discharge Planning Asst.
--- NOTE | 2023-12-25 12:36 | CT_ITS ---
STUDY: CTA CHEST REASON FOR EXAM: Male, 53 years old. pulmonary embolism, high risk RADIATION DOSAGE (If Supplied By Facility): CTDIvol = ( 13.14 ) mGy, DLP = ( 476.73 ) mGycm TECHNIQUE: The examination was performed with the intravenous administration of IV 100mL Isovue-370. Post-processing of the angiographic images was performed, with multiplanar reformation and 3D reconstruction. Individualized dose optimization techniques were used for this CT. The protocol utilizes one or more of the following dose reduction techniques: automated exposure control, adjustment of mA and/or kV according to patient size,and/or use of iterative reconstruction technique. COMPARISON: Chest x-ray December 24, 2023. FINDINGS: Normal enhancement of the main pulmonary artery and right and left pulmonary arteries. Normal enhancement of the bilateral peripheral pulmonary arteries. There is no demonstrated pulmonary embolism. Normal thoracic aorta and visualized great vessels. There is no demonstrated aortic dissection. Calcific coronary artery disease. Normal mediastinum. Normal hilar regions. Normal visualized trachea and bronchi. The lungs are well expanded. Normal pulmonary parenchyma. Normal pleura. Normal chest wall structures. Normal osseous structures. Multiple simple hepatic cysts. CT/CTA Chest W/WO Contrast IMPRESSION: Coronary artery disease. Otherwise no acute disease. Electronically Signed: Mike Wu MD at 16:30 EDT ,
[2023-12-25 13:47] LABS: Partial Thromboplast Time 48.7 Seconds (24.1-36.2)
--- NOTE | 2023-12-25 14:34 | CASEMGMT ---
CECE MCDONNELL Assessment: Face to Face with pt for initial transition planning/care coordination assessment. CECE MCDONNELL introduced self and role at [facility], pt voices understanding and consents to assessment. Pt is A&O x4 and answers all questions appropriately at this time. Care providers, pharmacy, and demographics verified/updated. Pt lying n bed in no distress with at bedside. Pt agreeable to assessment with present. Admitting Dx: NSTEMI Strata Score: 1 PCP:[facility] Specialists:Denies Preferred Pharmacy: [facility] Retail Insurance: [facility] Prescription Benefit: yes LNOK: Jennifer Rivera, Living Arrangements: Pt lives with in a single story home with and son with 3 steps to enter. Pt reports he is I in ADLs and denies concerns at home. Transportation: Pt drives self and denies concerns with transportation. DME:Denies HHC/SNF: Denies hx of Pt states no concerns with going home at time of dc. Pt states no further concerns/needs. CM to follow. Advised pt to ask CM if any further question/concerns/needs arise, voices understanding. Pt Goal: Home Plan: Home Syeda ZHAO CM
--- NOTE | 2023-12-25 16:27 | CL.D_ITS ---
Patient Name: ABDELRAHMAN CHA Study Date: 12/25/2023 Performing: Ramirez Martinez MD Ht: 70 inches 177.8 cm : 1970 Wt: 208.2 lbs 94.3 kg Age: 53 Gender: male BSA: 2.12 PROCEDURE(S) PERFORMED [id number]-([id number])[facility] CLINICAL PROFILE AND INDICATIONS Indications: ACS <= 24 hrs, NSTEMI Heart Failure: None CONCLUSIONS No significant obstructive coronary artery disease RECOMMENDATIONS DESCRIPTION OF PROCEDURE The patient arrived to the procedure lab. The risks and benefits of the procedure as well as a full description of our services here and current unavailability of surgical backup were fully explained to the patient and/or their significant other prior to the catheterization. The Timeout was completed, verifying the correct patient and procedure. The patient's procedural site was prepped and draped in the usual fashion. Local anesthetic was given subcutaneously to right radial region with Lidocaine 2%. Using a modified Seldinger technique, arterial access was obtained via the right radial artery, a 6Fr sheath was inserted. Left Coronary Artery selective angiography was performed in multiple views using a 5 Fr. JL3.5 catheter. Right Coronary Artery selective angiography was then performed in multiple views using a 5 Fr. JR 4 catheter.The arterial sheath was pulled and a TR Band was applied for hemostasis 10 ml of air CORONARY ANGIOGRAPHY DOMINANCE: Right Dominant LEFT MAIN: No significant disease noted LEFT ANTERIOR DESCENDING ARTERY: Mild luminal irregularities CIRCUMFLEX ARTERY: No significant disease noted RIGHT CORONARY ARTERY: No significant disease noted COMPLICATIONS No Complications PROCEDURE MEDICATIONS Fentanyl 50 mcg IV Versed 1 mg IV Oxygen: 2 L/min via nasal cannula Heparin given IA 12/25/2023 12:13:13 Verapamil 2.5mg, Ntg 100mcgs, 3000 units of Heparin given IA 12/25/2023 12:13:13 SUMMARY OF HEMODYNAMIC DATA Time AIR REST ECG 11:55:54 AO 113/83 (98) SA 12:14:43 AO 109/83 (97) 12:14:47 AO 111/84 (99) 12:15:47 AO 115/83 (99) 12:21:17 Signed By Ramirez Martinez MD On 12/25/2023 16:26:40 Ramirez Martinez MD
--- NOTE | 2023-12-25 16:53 | PCM.CONS.C ---
Assessment & Plan Assessment/Plan (1) Elevated troponin: PLAN: Patient did not have any significant obstructive epicardial coronary artery disease. It is possible that he had significant spasm that caused elevation in troponin and chest pain. Myocarditis is in the differential diagnosis as well. It is reasonable to treat the patient with aspirin, beta-elly, statin and also switch from lisinopril to amlodipine. He can follow-up with cardiology service as an outpatient. (2) Chest pain: QUALIFIERS: Chest pain type: unspecified Qualified Code(s): R07.9 - Chest pain, unspecified HPI Consult Data Date of Consult: 12/25/23 HPI Narrative Reason for Consultation: Non-STEMI HPI Narrative: ABDELRAHMAN CHA, is a 53 M who presents with chest pain. Chest pain started about as retrosternal burning discomfort that became pressure-like and also radiated to his left arm. Patient's high-sensitivity troponin went up to around 6900. He underwent coronary angiography which revealed no significant obstructive CAD. CTA was done which revealed no PE. There was coronary artery calcification. Patient is currently chest pain-free. His 2D echo revealed preserved LV systolic function with no significant regional wall motion abnormalities. Review of systems: All systems reviewed. All else negative except that of HPI [facility] Medical History Low testosterone Hypertension Home Medications ?Medication ?Instructions ?Recorded ?Last Taken ?Type lisinopril 10 mg tablet 10 mg PO DAILY 12/24/23 Unknown History testosterone 2 - 3 pump topical DAILY 12/24/23 Unknown History Allergy/AdvReac Type Severity Reaction Status Date / Time prochlorperazine (From AdvReac Other Verified 12/24/23 17:33 Compazine) Family History (Updated 12/24/23 @ 23:[address] Sonali Flores DO) Brother No problems noted. Other CVA (cerebral vascular accident) Cancer Heart disease Hypertension Surgical History S/P LASIK surgery Social History (Updated 12/24/23 @ 23:[address] Sonali Flores DO) household members: spouse housing: house Smoking Status: Never smoker alcohol intake: current alcohol intake frequency: holidays/special occasions only substance use type: does not use Physical Exam Const alert HEENT normocephalic Eyes no scleral icterus Resp normal respiratory effort Cardio regular rate Psych mental status grossly normal Risk Stratification Risk Stratification Applicable: No Charges/Coding Visit Charges Inpatient E&M: 68708 Init Hosp L2 Objective Data Vital Signs: Vital Signs Temp Pulse Resp BP Pulse Ox O2 Del Method 98.1 F 77 18 114/86 H 98 Room Air 12/25/23 15:13 12/25/23 15:13 12/25/23 15:13 12/25/23 15:13 12/25/23 15:13 12/25/23 15:13 Oxygen Delivery Method Room Air Weight: 207 lb 14.334 oz Body Mass Index (BMI) 29.8 Intake & Output: Intake and Output for Last 24 Hours 12/23/23 12/24/23 12/25/23 23:59 23:59 23:59 Intake Total 135.63 / 135.63 Balance 135.63 / 135.63 Lab / Micro Data 12/25/23 04:49 12/25/23 04:49 Labs: Laboratory Results - last 24 hr 12/24/23 17:44: WBC 8.5, RBC 4.89, Hgb 14.4, Hct 43.0, MCV 87.9, MCH 29.4, MCHC 33.5, RDW Std Deviation 38.3, RDW Coeff of Antolin 11.9, Plt Count 245, MPV 11.0, Immature Gran % (Auto) 0.200, Neut % (Auto) 57.8, Lymph % (Auto) 32.2, [place] % (Auto) 7.3, Eos % (Auto) 1.9, Baso % (Auto) 0.6, Absolute Neuts (auto) 4.9, Absolute Lymphs (auto) 2.74, Nucleated RBC % 0, Sodium 138, Potassium 3.4 L, Chloride 104, Carbon Dioxide 29.0, Anion Gap 5, BUN 14, Creatinine 0.84, Estim Creat Clear Calc 116.88, Est GFR (MDRD) Af Amer 121, Est GFR (MDRD) Non-Af 100, BUN/Creatinine Ratio 16.6, Glucose 111 H, Calcium 9.5, Troponin I High Sens 8 12/24/23 20:55: Troponin I High Sens 173 H* 12/24/23 22:49: PT 14.6, INR 1.1, APTT 26.8 08/21/24 23:59: Troponin I High Sens 6914 H* 12/25/23 04:49: WBC 7.6, RBC 4.69, Hgb 14.0, Hct 41.2, MCV 87.8, MCH 29.9, MCHC 34.0, RDW Std Deviation 38.3, RDW Coeff of Antolin 12.0, Plt Count 220, MPV 10.3, Immature Gran % (Auto) 0.300, Neut % (Auto) 53.3, Lymph % (Auto) 37.4, [place] % (Auto) 6.6, Eos % (Auto) 1.9, Baso % (Auto) 0.5, Absolute Neuts (auto) 4.0, Absolute Lymphs (auto) 2.82, Nucleated RBC % 0, APTT 42.9 H, Sodium 140, Potassium 3.7, Chloride 109 H, Carbon Dioxide 26.0, Anion Gap 5, BUN 10, Creatinine 0.65 L, Estim Creat Clear Calc 149.80, Est GFR (MDRD) Af Amer 165, Est GFR (MDRD) Non-Af 136, BUN/Creatinine Ratio 15.5, Glucose 112 H, Calcium 9.1, Phosphorus 4.0, Magnesium 2.0, Total Bilirubin 1.60 H, AST 51 H, ALT 43, Alkaline Phosphatase 49, Total Protein 6.4, Albumin 3.7, Globulin 2.7, Albumin/Globulin Ratio 1.4, Triglycerides 107, Cholesterol 176, LDL Cholesterol 109, VLDL Cholesterol 21, HDL Cholesterol 46 12/25/23 13:25: APTT 48.7 H Cardiology Labs/Tests 12/24/23 17:44: WBC 8.5, RBC 4.89, Hgb 14.4, Hct 43.0, MCV 87.9, MCH 29.4, MCHC 33.5, Plt Count 245, MPV 11.0, Immature Gran % (Auto) 0.200, Neut % (Auto) 57.8, Lymph % (Auto) 32.2, [place] % (Auto) 7.3, Eos % (Auto) 1.9, Baso % (Auto) 0.6, Absolute Neuts (auto) 4.9, Nucleated RBC % 0, Sodium 138, Potassium 3.4 L, Chloride 104, Carbon Dioxide 29.0, Anion Gap 5, BUN 14, Creatinine 0.84, Est GFR (MDRD) Af Amer 121, Est GFR (MDRD) Non-Af 100, BUN/Creatinine Ratio 16.6, Glucose 111 H, Calcium 9.5 12/24/23 22:49: PT 14.6, INR 1.1, APTT 26.8 12/25/23 04:49: WBC 7.6, RBC 4.69, Hgb 14.0, Hct 41.2, MCV 87.8, MCH 29.9, MCHC 34.0, Plt Count 220, MPV 10.3, Immature Gran % (Auto) 0.300, Neut % (Auto) 53.3, Lymph % (Auto) 37.4, [place] % (Auto) 6.6, Eos % (Auto) 1.9, Baso % (Auto) 0.5, Absolute Neuts (auto) 4.0, Nucleated RBC % 0, APTT 42.9 H, Sodium 140, Potassium 3.7, Chloride 109 H, Carbon Dioxide 26.0, Anion Gap 5, BUN 10, Creatinine 0.65 L, Est GFR (MDRD) Af Amer 165, Est GFR (MDRD) Non-Af 136, BUN/Creatinine Ratio 15.5, Glucose 112 H, Calcium 9.1, Phosphorus 4.0, Magnesium 2.0, Total Bilirubin 1.60 H, Triglycerides 107, Cholesterol 176, LDL Cholesterol 109, VLDL Cholesterol 21, HDL Cholesterol 46 12/25/23 13:25: APTT 48.7 H Rhythm: EKG: ECHO: Stress Test: Cardiac Cath: PCI: CT Surgery: Holter monitor: EPS: PPM: CXR: Chest CT Scan: Radiography Diagnostic Testing: Radiology Impression Chest X-Ray 12/24/23 18:54 IMPRESSION: Normal x-ray examination of the chest. Electronically Signed: Kush Goyal MD at 19:36 EDT , Echocardiogram 12/25/23 05:55 Interpretation Summary The estimated ejection fraction is 55 %. No evidence for diastolic dysfunction. Ordering Physician: Sonali Flores Referring Physician: Jamarcus Tracey Performed By: Teresita Morley, MATTHEW, RVT Chest CTA 12/25/23 12:36 IMPRESSION: Coronary artery disease. Otherwise no acute disease. Electronically Signed: Mike Wu MD at 16:30 EDT ,
--- NOTE | 2023-12-25 17:14 | PCM.DC.SUM ---
Providers Date of Admission: 12/24/23 Date of Discharge: 12/25/23 Primary Care Physician: Dr. Jamarcus Tracey, Consultations 12/24/23 23:34 Consult: Cardiology Routine Consulting Provider: Raina Martinez Reason for Consult: Chest Pain EMERGENT Consult: No MD Notified: Yes Date Notified: 12/24/23 Time Notified: 22:49 Method of Notification: ED Physician Initiated Reason For Visit: NSTEMI Diagnosis Discharge Diagnosis (1) Elevated troponin: Status: Acute Code(s): R79.89 - Other specified abnormal findings of blood chemistry (2) Chest pain: Status: Acute Code(s): R07.9 - Chest pain, unspecified Qualifiers: Chest pain type: unspecified Qualified Code(s): R07.9 - Chest pain, unspecified Plan: DISCHARGE DIAGNOSES: #1. Acute NSTEMI with cardiac catheterization with only mild luminal irregularities in the LAD with no obstructive CAD process noted with elevated troponins felt like possibly secondary to coronary artery spasms versus potentially myocarditis but uncertain #2. Hypokalemia, resolved #3. Hypertension #4. Hypotestosteronism Medications at Discharge Home Medications testosterone 2 - 3 pump topical DAILY 12/24/23 amlodipine 2.5 mg tablet 2.5 mg PO DAILY 30 days #30 tabs 12/25/23 aspirin 81 mg tablet,delayed release 81 mg PO BREAKFAST 30 days #30 tabs 12/25/23 atorvastatin 80 mg tablet 80 mg PO QHS 30 days #30 tabs 12/25/23 metoprolol tartrate 25 mg tablet 25 mg PO BID 30 days #60 tabs 12/25/23 Hospital Course Operations None Procedures 2-D Echocardiogram, Cardiac catheterization and EKG Summary of Care Provided Minutes Spent on Discharge: 35 Hospital Course: The patient is a 53 y/o M w/ PMHx: Obesity, HTN, Hypotestosteronism who presented to the [facility] ED on 12/24/23 with history of onset of chest discomfort starting approximately 4:30 in the afternoon on day of presentation with midsternal chest discomfort with then radiation to his left upper extremity with associated dyspnea with no nausea, emesis or diaphoresis with BP check in the office with significant elevation prompting ED evaluation to be cautious especially given underlying family history for cardiac disease. Patient admitted to PCU, maintain on cardiac telemetry, chest x-ray with no acute cardiopulmonary findings, EKG with no acute evidence of ischemia, cardiac enzyme trending with initial 8-> 173-> 6914, CTPA with evidence of coronary artery disease with no other acute cardiopulmonary findings and no evidence of any pulmonary emboli, Echocardiogram with EF 55%, no evidence of any diastolic dysfunction, no evidence any valvular disease. Cardiac catheterization with no significant obstructive coronary disease with only noted mild luminal irregularities in the left anterior descending artery. Per discussion with cardiology Dr. Martinez given very mild luminal irregularities in the LAD and negative CTPA decision to discharge on low-dose Norvasc, low-dose metoprolol, aspirin and statin therapy with discontinuation of home previous lisinopril with follow-up outpatient with cardiology. Presentation with elevated troponins felt secondary to possibly cardiac spasms given not marked appearing cardiac catheterization and unremarkable CTPA with lower suspicion for myocarditis. Given patient's significant clinical improvement with resolution of chest pain as well as unremarkable cardiac catheterization and no acute etiology for elevated enzymes found on thorough evaluation patient felt clinically appropriate and improved quicker than expected and appropriate for discharge to home with also patient requesting this transition additionally. Weight / BMI Weight Weight: 207 lb 14.334 oz Body Mass Index (BMI) 29.8 ABG / Lab / Microbiology Data 12/25/23 04:49 12/25/23 04:49 Laboratory: Laboratory Results - last 24 hr 12/24/23 17:44: WBC 8.5, RBC 4.89, Hgb 14.4, Hct 43.0, MCV 87.9, MCH 29.4, MCHC 33.5, RDW Std Deviation 38.3, RDW Coeff of Antolin 11.9, Plt Count 245, MPV 11.0, Immature Gran % (Auto) 0.200, Neut % (Auto) 57.8, Lymph % (Auto) 32.2, Robertson % (Auto) 7.3, Eos % (Auto) 1.9, Baso % (Auto) 0.6, Absolute Neuts (auto) 4.9, Absolute Lymphs (auto) 2.74, Nucleated RBC % 0, Sodium 138, Potassium 3.4 L, Chloride 104, Carbon Dioxide 29.0, Anion Gap 5, BUN 14, Creatinine 0.84, Estim Creat Clear Calc 116.88, Est GFR (MDRD) Af Amer 121, Est GFR (MDRD) Non-Af 100, BUN/Creatinine Ratio 16.6, Glucose 111 H, Calcium 9.5, Troponin I High Sens 8 12/24/23 20:55: Troponin I High Sens 173 H* 12/24/23 22:49: PT 14.6, INR 1.1, APTT 26.8 12/24/23 23:59: Troponin I High Sens 6914 H* 12/25/23 04:49: WBC 7.6, RBC 4.69, Hgb 14.0, Hct 41.2, MCV 87.8, MCH 29.9, MCHC 34.0, RDW Std Deviation 38.3, RDW Coeff of Antolin 12.0, Plt Count 220, MPV 10.3, Immature Gran % (Auto) 0.300, Neut % (Auto) 53.3, Lymph % (Auto) 37.4, Robertson % (Auto) 6.6, Eos % (Auto) 1.9, Baso % (Auto) 0.5, Absolute Neuts (auto) 4.0, Absolute Lymphs (auto) 2.82, Nucleated RBC % 0, APTT 42.9 H, Sodium 140, Potassium 3.7, Chloride 109 H, Carbon Dioxide 26.0, Anion Gap 5, BUN 10, Creatinine 0.65 L, Estim Creat Clear Calc 149.80, Est GFR (MDRD) Af Amer 165, Est GFR (MDRD) Non-Af 136, BUN/Creatinine Ratio 15.5, Glucose 112 H, Calcium 9.1, Phosphorus 4.0, Magnesium 2.0, Total Bilirubin 1.60 H, AST 51 H, ALT 43, Alkaline Phosphatase 49, Total Protein 6.4, Albumin 3.7, Globulin 2.7, Albumin/Globulin Ratio 1.4, Triglycerides 107, Cholesterol 176, LDL Cholesterol 109, VLDL Cholesterol 21, HDL Cholesterol 46 12/25/23 13:25: APTT 48.7 H Radiography Diagnostic Testing: Radiology Impression Chest X-Ray 12/24/23 18:54 IMPRESSION: Normal x-ray examination of the chest. Electronically Signed: Kush Goyal MD at 19:36 EDT , Echocardiogram 12/25/23 05:55 Interpretation Summary The estimated ejection fraction is 55 %. No evidence for diastolic dysfunction. Ordering Physician: Sonali Flores Referring Physician: Jamarcus Tracey Performed By: Teresita Morley, MATTHEW, RVT Chest CTA 12/25/23 12:36 IMPRESSION: Coronary artery disease. Otherwise no acute disease. Electronically Signed: Mike Wu MD at 16:30 EDT Reading Location ID and State: [address] [place] [address] Tel , Service support , D/C Instructions Discharge Diet: Low fat / Low cholesterol May resume sexual activity in: No Restrictions Weight Bearing Status: Weight bearing as tolerated Call your doctor if your incision/area has: Continuous Slow Oozing, Sudden Increased Bleeding, Increased Pain/ Swelling, Increased Redness, Foul Smelling Discharge and Swelling at the incision site Call your doctor if you observe: Fever of 101 or Higher, Shortness of breath, Swelling in the ankles, Chest pain, Increased palpitations (irregular heartbeat) and Uncontrolled pain Meaningful Use Info Meaningful Use Meaningful Use Diagnoses (Choose all that apply): AMI AMI/Post PCI/Angioplasty Aspirin given w/in 24hrs of arrival?: Yes ASA at discharge?: Yes Antiplatelet Therapy at Discharge:: No Reason Antiplatelet Therapy not ordered:: No obstructive CAD Statins at discharge?: Yes Chuck/ARB at discharge?: No Reason Chuck/ARB not ordered:: Not indicated (Changed per Cardiology as noted.) Beta Som at discharge?: Yes Done w/ Acute ME measure.: Yes Documented LVEF (%): 55 Ischemic Stroke Statin Dosing Therapy Reference: STATIN DOSE THERAPY REFERENCE: * Patients > 75 years receive moderate or high dose statin therapy. * Patients 75 years or YOUNGER should receive HIGH intensity statin dose unless contraindicated. You will be required to document reason for non-treatment if statin daily dose does not meet guidelines. HIGH DOSE STATIN THERAPY DAILY Atorvastatin > than or = to 40 mg Rosuvastatin > than or = to 20 mg Amlodipine + Atorvastatin > than or = to 2.5/40 mg Ezetimibe + Simvastatin 10/80 mg Simvastatin 80mg Discharge Plan Admission Admit Date/Time: 12/24/23 22:45 Primary Reason for Your Visit: NSTEMI with no significant obstructive CAD Attending Provider: Carol Burleson Primary Care Provider: Jamarcus Tracey Consulting Providers: Raina Martinez; Sonali Flores Instructions Additional Instructions / Restrictions: ADDITIONAL CARE REVIEW/DISCHARGE INFORMATION: --Chest x-ray with no acute cardiopulmonary findings. --EKG with no acute evidence of ischemia. --Cardiac enzyme trending with initial 8-> 173-> 6914. --CTPA with evidence of coronary artery disease with no other acute cardiopulmonary findings and no evidence of any pulmonary emboli. --Echocardiogram with EF 55%, no evidence of any diastolic dysfunction, no evidence any valvular disease. --Cardiac catheterization with no significant obstructive coronary disease with only noted mild luminal irregularities in the left anterior descending artery. --Per discussion with cardiology Dr. Martinez given very mild luminal irregularities in the LAD and negative CTPA decision to discharge on low-dose Norvasc, low-dose metoprolol, aspirin and statin therapy with discontinuation of home previous lisinopril with follow-up outpatient with cardiology. --Presentation with elevated troponins felt secondary to possibly cardiac spasms given not marked appearing cardiac catheterization and unremarkable CTPA with lower suspicion for myocarditis. Discharge Orders/Prescriptions Prescriptions: New atorvastatin 80 mg Tablet 80 mg PO QHS 30 Days Qty: 30 0RF amlodipine 2.5 mg Tablet 2.5 mg PO DAILY 30 Days Qty: 30 0RF aspirin 81 mg Tablet,Delayed Release (Dr/Ec) 81 mg PO BREAKFAST 30 Days Qty: 30 0RF metoprolol tartrate 25 mg Tablet 25 mg PO BID 30 Days Qty: 60 0RF Continued testosterone 20.25 mg/1.25 gram (1.62 %) gel in metered-dose pump 2 - 3 pump topical DAILY Discontinued lisinopril 10 mg tablet 10 mg PO DAILY Referrals / Follow Up: Niko Merrill MD [Med Staff - Active Staff] - (Follow-up regarding recent NSTEMI admission within 1-2 weeks for re-evaluation. May see MEDIA THEORIST AND AUTHOR OF/PA.) Jamarcus Tracey DO [Primary Care Provider] - (Follow-up within 3-5 days to review admission/medication changes.) Disposition Disposition (needs filled in before D/C Order can be placed): Home, Self Care Charges/Coding Visit Charges Inpatient E&M: 51307 Disch Hosp >30min
== END 2023-12-25 17:35 | disposition home or self-care (01) | DRG 282 ==
LOC: ED 22:14 → PCU 12-25 04:11
PROVIDERS: Admitting Provider Internal Medicine; Emergency Provider Emergency Medicine; PCP Family Medicine; Visit Provider Family Medicine
DX: I21.4 Non-ST elevation (NSTEMI) myocardial infarction (principal); E29.1 Testicular hypofunction; I51.4 Myocarditis, unspecified; I10 Essential (primary) hypertension; I20.1 Angina pectoris with documented spasm; Z79.890 Hormone replacement therapy; Z79.899 Other long term (current) drug therapy; Z82.49 Family history of ischemic heart disease and other diseases of the circulatory system
CPT/HCPCS: 36415; 71045; 71275; 80048; 80053; 80061; 83735; 84100; 84484; 85025; 85610; 85730; 93005; 93306; 93454; 99152; 99153; 99284; J7040; Q9957; Q9967; A4216; C1769; C1894; C8929

== ENCOUNTER → 2024-07-12 | Outpatient (CLI) | payer OTHER, SELFPAY ==
[2024-07-12 13:14] LABS: AST(SGOT) 37 U/L (<=37); Alanine Aminotransfer ALT/SGPT 41 U/L (<=46); Albumin, Serum 4.4 g/dL (3.5-5.0); Alkaline Phosphatase 64 U/L (40-129); Bilirubin, Direct 0.68 mg/dL (0.00-0.30); Globulin 2.4 g/dL (2.2-4.2); Protein, Total 6.9 g/dL (5.9-8.4); Total Bilirubin 1.75 mg/dL (0.00-1.30)
[2024-07-12 13:58] LABS: Cholesterol 118 mg/dL (<=200); High Density Lipoprotein 48 mg/dL; Low Density Lipoprotein Calc. 54 mg/dL; Triglycerides 82 mg/dL; Very Low Density Lipoprotein 16 mg/dL (5-40); cholesterol:hdl ratio screen 2.47
== END | disposition home or self-care (01) ==
LOC: MTLAB 10:18
PROVIDERS: PCP Family Medicine; Referring Provider Physician Assistant Medical; Visit Provider Physician Assistant Medical
DX: I25.2 Old myocardial infarction (principal)
CPT/HCPCS: 36415; 80061; 80076

== ENCOUNTER → 2024-08-03 | Outpatient (CLI) | payer OTHER, SELFPAY ==
[2024-08-03 19:26] LABS: PSA,Total- Diagnostic 1.65 ng/mL (0.00-4.00)
== END | disposition home or self-care (01) ==
LOC: MTLAB 16:47
PROVIDERS: PCP Family Medicine; Referring Provider Family Medicine; Visit Provider Family Medicine
DX: E29.1 Testicular hypofunction (principal); R97.20 Elevated prostate specific antigen [PSA]
CPT/HCPCS: 36415; 84153; 84403

== ENCOUNTER → 2024-12-17 | Outpatient (CLI) | payer OTHER, SELFPAY | END | disposition home or self-care (01) | LOC: SL 08:47 | PROVIDERS: PCP Family Medicine; Referring Provider Family Medicine; Visit Provider Family Medicine | DX: I10 Essential (primary) hypertension (principal); R06.83 Snoring; R53.83 Other fatigue | CPT/HCPCS: 95806 ==

== ENCOUNTER 2024-12-31 06:28 | Day surgery (SDC) | payer OTHER, SELFPAY ==
--- NOTE | 2024-12-30 15:54 | PAT.ANE_ITS ---
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 When Was Last Pacemaker Check QUESTION #4 FULL TEXT: You/Your Family Experience fever (hyperthermia) with Anesthesia Last Oral Intake Last Oral intake: Last Oral Intake NPO since Meds taken in AM with sips of water? 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 programmer Female No 12/30/24 12:09 HX of Motion Sickness No 12/30/24 12:09 HX of N/V After Surgery No 12/30/24 12:09 Non-Smoker Yes 12/30/24 12:09 Duration of Surgery greater No 12/30/24 12:09 than 60 minutes Number of Risk Factors 1 12/30/24 12:09 PONV Score Low Risk 12/30/24 12:09 Height & Weight Height & Weight: Anesthesia: Height & Weight Height 5 ft 10 in 11/24/24 08:20 Respiratory Assessment Respiratory Assessment - senior java programmer: Respiratory Tract Infection Hx - senior java programmer Hx Respiratory Tract Infection No 12/30/24 12:09 STOP Sleep Apnea STOP Sleep Apnea - senior java programmer: STOP Sleep Apnea - senior java programmer Hx Hypertension Yes 12/30/24 12:09 Hx Sleep Apnea Yes: positional 12/30/24 12:09 CPAP No 12/30/24 12:09 BIPAP No 12/30/24 12:09 Do you snore loudly (louder than talking or can be heard Do you often feel tired/ fatigued/ sleepy during daytime? Has anyone observed you stop breathing during sleep? STOP Results Positive 12/30/24 12:09 QUESTION #5 FULL TEXT : Do you snore loudly (louder than talking or can be heard through closed doors)? 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 Specify any problems Hx of Preganancy in last 3 N/A 12/30/24 12:09 Months Nurse Filling Out Transfusion JZOLLINGE 12/30/24 12:09 & Questions: Date: 12/30/24 12/30/24 12:09 Time: 12:10 12/30/24 12:09 Patient unable to answer at this time (ie. confused, unrespo /Reproduction History /Reproductive History - senior java programmer: /Reproductive Hx- senior java programmer Hx Now No 12/30/24 12:09 Gestational Age (in weeks): EDC: Hx Hx Para Hx Section SAB No 12/30/24 12:09 [facility] Medical History (Updated 12/30/24 @ 12:17 by Lelo Galeana) Non-smoker Sleep apnea Cardiology follow-up encounter Hyperlipidemia NSTEMI (non-ST elevated myocardial infarction) (12/24/23) Low testosterone Hypertension Home Medications ?Medication ?Instructions ?Recorded ?Last Taken ?Type testosterone 2 - 3 pump topical DAILY Unknown History nitroglycerin 0.4 mg sublingual 0.4 mg sublingual Q5-1 5M PRN chest 01/13/24 Unknown Rx tablet (Nitrostat) pain #25 tabs amlodipine 5 mg tablet 5 mg PO DAILY #90 tabs 04/13 Unknown Rx atorvastatin 20 mg tablet 20 mg PO QHS #90 tabs Unknown Rx lisinopril 20 mg tablet 20 mg PO QDAY #90 tabs 07/28 Unknown Rx atenolol 25 mg tablet 25 mg PO QDAY 11/24/24 Unkno wn History Allergy/AdvReac Type Severity Reaction Status Date / Time prochlorperazine (From AdvReac Other Verified 12/30/24 12:03 Compazine) Family History Brother No problems noted. Other CVA (cerebral vascular accident) Cancer Heart disease Hypertension Surgical History (Updated 12/30/24 @ 12:08 by Lelo Galeana) Hx of colonoscopy with polypectomy S/P LASIK surgery Social History household members: spouse housing: house Smoking Status: Never smoker alcohol intake: current alcohol intake frequency: holidays/special occasions only substance use type: does not use Audit: Pertinent Findings Pertinent Findings EKG Perinent findings: December 25, 2023. Normal sinus rhythm. Stress test pertinent findings: 01/23/2023. Patient achieved a METS of 17.2. Negative for exercise-induced chest pain. Negative for exercise-induced EKG changes of ischemia. Echo (EF%) pertinent findings: 12/25/2023. EF of 55%. PASP is 25 mmHg. No aortic stenosis. Heart catheterization pertinent findings: December 25, 2023. No significant obstructive coronary artery disease. Consult pertinent findings: November 24, 2024. Serge CREWS. 1. Hypertension-controlled on amlodipine, atenolol, lisinopril. Patient to continue to monitor. 2. NSTEMI-nonobstructive coronary arteries. Likely myocarditis versus coronary spasm. Patient has not had no further chest discomfort. Continue with blood pressure control. Recommendation Anesthesia Recommendation Anesthesia recommendation: OPTIMIZED for anesthesia
[2024-12-31] VITALS (8 sets, daily range): BP systolic 80–100; BP diastolic 59–71; PULSE 64–70; RESP 16–20; TEMP 36.1–37.2; O2SAT 96–97; BMI 38.7
--- OUTSIDE RECORDS SUMMARY | 2024-12-31 06:31 | XMS RPT_ITS | CCD ---
Author Organization [facility] Care Team Providers Care Filer Finish Name Role Phone HUMERA, MONICA Quiñones Attending Unavailable HUMERA, MONICA Quiñones Primary Care Unavailable HUMERA, MONICA Quiñones Admitting Unavailable HUMERA, MONICA Quiñones Attending Unavailable HUMERA, MONICA Quiñones Primary Care Unavailable HUMERA, MONICA Quiñones Admitting Unavailable Dr. Rahul Tracey Primary Care Provider Dr. Rahul Tracey Referring Provider Dr. Rahul Tracey Other Provider [phone] Dr. Raina Martinez Attending Provider Bridger Jaime Primary Care Provider [phone] ROGER VICK Attending Unavailable BRIDGER JAIME Primary Care Unavailable ROGER VICK Referring Unavailable BRIDGER JAIME Primary Care Unavailable Rahul Tracey DO Primary Care Provider RAHUL TRACEY Primary Care Unavailable Dr. Rahul Tracey DO Primary Care Provider [phone] Dr. Rahul Tracey DO Referring Provider Ghislaine Jiménez Attending Provider [phone] Ghislaine Jiménez Referring Provider Dr. Rahul Tracey DO Attending Provider [phone] Dr. Rahul Tracey DO Primary Care Provider [phone] Dr. Rahul Tracey DO Referring Provider [phone] Ghislaine Jiménez Attending Provider [phone] Dr. Rahul Tracey DO Primary Care Provider Dr. Rahul Tracey DO Referring Provider Ghislaine Jiménez Attending Provider [phone] Dr. Rahul Tracey DO Attending Provider Rahul Tracey Referring Unavailable Alexy, Rahul Primary Care Unavailable Alexy, Rahul Attending Unavailable Alexy, Rahul Primary Care Unavailable Jose E Varner Attending Unavailable Alexy, Rahul Referring Unavailable Alexy, Rahul Referring Unavailable Ghislaine Jiménez Attending Unavail able Rahul Tracey Primary Care Unavailable Alexy, Rahul Primary Care Unavailable Ghislaine Jiménez Attending Unavail able Alexy, Rahul Referring Unavailable Ghislaine Jiménez Attending Unavail able Rahul Tracey Referring Unavailable Alexy, Rahul Primary Care Unavailable Alexy, Rahul Referring Unavailable Ghislaine Jiménez Attending Unavail able Alexy, Rahul Primary Care Unavailable Alexy, Rahul Primary Care Unavailable Alexy, Rahul Attending Unavailable Alexy, Rahul Referring Unavailable Ghislaine Jiménez Attending Unavail able Ghislaine Jiménez Referring Unavail able AlexyRahul ku Primary Care Unavailable Allergies Allergy Classification Reported Allergen(s) Allergy Type Date of Onset Reaction(s) Facility (9 sources) Prochlorperazine Drug Allergy 0 Other [facility] (2 sources) Prochlorperazine; Translations: [PROCHLORPERAZINE EDISYLATE] Drug Allergy 0 Mental Status Change [facility] (1 source) Prochlorperazine Drug Allergy 5 [facility] Repository Medications Current Medications Medication Drug Class(es) Dates Sig (Normalized) Sig (Original) amLODIPine 5 mg oral tablet (12 sources) Dihydropyridine Calcium Channel Som Start: 04-13-2024 take 1 tablet by mouth once daily Amlodipine 5 mg tablet Active 5 mg PO DAILY 90 April 13, 2024 9:53am Start: 12-25-2023 End: 04-13-2024 take 1 tablet by mouth once daily Amlodipine 2.5 mg tablet Discontinued 2.5 mg PO DAILY 90 3 January 13, 2024 9:53am April 13, 2024 9:54am atenolol 25 mg oral tablet (2 sources) beta-Adrenergic Som Start: 11-24-2024 take 1 tablet by mouth once daily Atenolol 25 mg tablet Active 25 mg PO daily November 24, 2024 12:00am atorvastatin 20 mg oral tablet (12 sources) HMG-CoA Reductase Inhibitor Start: 04-13-2024 take 1 tablet by mouth at bedtime Atorvastatin 20 mg tablet Active 20 mg PO AT BEDTIME 90 April 13, 2024 9:56am Start: 01-13-2024 End: 04-13-2024 take 1 tablet by mouth at bedtime Atorvastatin 40 mg tablet Discontinued 40 mg PO AT BEDTIME 90 January 13, 2024 9:52am April 13, 2024 9:57am Start: 12-25-2023 End: 01-13-2024 take 1 tablet by mouth at bedtime Atorvastatin 80 mg Tablet Discontinued 80 mg PO AT BEDTIME 30 30 0 December 25, 2023 12:00am January 13, 2024 9:53am benzonatate 100 mg oral capsule (1 source) Non-narcotic Antitussive Start: 09-25-2018 take 1 capsule by mouth three times daily as needed for cough benzonatate (TESSALON PERLE) 100 mg capsule Indications: Sinobronchitis Take 1 capsule by mouth three times daily as needed for Cough. 42 capsule 0 09/25/2018 Active 12 hr guaiFENesin 600 mg extended release oral tablet (1 source) Start: 09-25-2018 take 2 tablets by mouth twice daily guaiFENesin (MUCINEX) 600 mg 12 hr tablet Indications: Sinobronchitis Take 2 tablets by mouth twice daily. 28 tablet 0 09/25/2018 Active lisinopril 20 mg oral tablet (12 sources) Angiotensin Converting Enzyme Inhibitor Start: 07-28-2024 take 1 tablet by mouth once daily Lisinopril 20 mg tablet Active 20 mg PO daily 90 3 July 28, 2024 8:51am Start: 07-28-2024 End: 07-28-2024 take 1 tablet by mouth once daily Lisinopril 10 mg tablet Discontinued 10 mg PO daily July 28, 2024 12:00am July 28, 2024 8:53am Start: 12-24-2023 End: 12-25-2023 take 1 tablet by mouth once daily Lisinopril 10 mg tablet Discontinued 10 mg PO DAILY December 24, 2023 12:00am December 25, 2023 5:06pm Start: 01-08-2023 take 1 tablet by nasir th once daily lisinopril 10 MG tablet Take 10 mg by mouth daily. 0 01/08/2023 Active LISINOPRIL ORAL Take by mouth. 0 Active nitroglycerin 0.4 mg sublingual tablet (4 sources) Nitrate Vasodilator Start: 01-13-2024 Nitroglycerin (Nitrostat) 0.4 mg tablet, sublingual Active 0.4 mg SL every 5 to 15 minutes as needed for chest pain 25 January 13, 2024 12:00am do not exceed 3 doses per episode predniSONE 20 mg oral tablet (1 source) Start: 09-11-2023 End: 09-16-2023 take 1 tablet by mouth once daily predniSONE (DELTASONE) 20 mg tablet Indications: Sore throat Take 1 tablet by mouth once daily for 5 days. 5 tablet 0 09/11/2023 09/16/2023 Active 60 actuat testosterone 20.25 mg/actuat topical gel (5 sources) Androgen Start: 12-24-2023 Testosterone 20.25 mg/1.25 gram (1.62 %) gel in metered-dose pump Active 2 - 3 NMA TOPICAL DAILY December 24, 2023 12:00am Start: 01-07-2023 Testosterone 2 0.25 MG/ACT (1.62%) gel APPLY 3 PUMPS TOPICALLY ONCE DAILY IN THE MORNING TO THE SHOULDER, UPPER ARMS, OR ABDOMEN 0 01/07/2023 Active Completed/Discontinued Medications Medication Drug Class(es) Dates Sig (Normalized) Sig (Original) aspirin 81 mg delayed release oral tablet (4 sources) Platelet Aggregation Inhibitor, Nonsteroidal Anti-inflammatory Drug Start: 12-25-2023 End: 04-13-2024 take 1 tablet by mouth at breakfast Aspirin 81 mg Tablet,Delayed Release (Dr/Ec) Discontinued 81 mg PO WITH BREAKFAST 30 30 0 December 25, 2023 12:00am April 13, 2024 9:28am metoprolol tartrate 25 mg oral tablet (12 sources) beta-Adrenergic Som Start: 04-13-2024 End: 12-10-2024 take 1 tablet by mouth once daily Metoprolol Tartrate 25 mg tablet Discontinued 25 mg PO daily April 13, 2024 9:49am April 13, 2024 9:53am Start: 12-25-2023 End: 04-13-2024 take 1 tablet by mouth twice daily Metoprolol Tartrate 25 mg tablet Discontinued 25 mg PO TWICE A DAY 180 3 January 13, 2024 9:53am April 13, 2024 9:49am Problems Active Problems Problem Classification Problem Date Documented Date Episodic/Chronic Acute myocardial infarction (8 sources) Myocardial infarction; Translations: [Non-ST elevation (NSTEMI) myocardial infarction] Onset: 4 12-26-2023 Chronic Comment on above: Nonobstructive coron layla; Likely Myocarditis vs. Coronary spasm Coronary atherosclerosis and other heart disease (1 source) Old myocardial infarction; Translations: [Old myocardial infarction] Onset: 5 Chronic Disorders of lipid metabolism (7 sources) Hyperlipidemia; Translations: [Hyperlipidemia, unspecified] 07-28-2024 Chronic Essential hypertension (11 sources) Hypertensive disorder; Translations: [Essential (primary) hypertension] Onset: 5 01-13-2024 Chronic Joint disorders and dislocations; trauma-related (3 sources) Dislocation of digit of hand; Translations: [Dislocation of proximal interphalangeal joint of right little finger, initial encounter] Onset: 3 02-05-2023 Episodic Other endocrine disorders (1 source) Testicular hypofunction; Translations: [Testicular hypofunction] Onset: 5 Chronic Other screening for suspected conditions (not mental disorders or infectious disease) (2 sources) Patient encounter status; Translations: [Encounter for screening for malignant neoplasm of colon] 08-25-2024 Episodic Other upper respiratory infections (1 source) Sore throat symptom; Translations: [Acute pharyngitis, unspecified] 09-11-2023 Episodic Sprains and strains (3 sources) Traumatic rupture of collateral ligament of right little finger at metacarpophalangeal and interphalangeal joint, initial encounter; Translations: [Other sprains and strains of hand] Onset: 3 02-05-2023 Episodic Past or Other Problems Problem Classification Problem Date Documented Da te Episodic/Chronic Other and unspecified benign neoplasm (2 sources) Benign neoplasm of colon; Translations: [Benign neoplasm of colon, unspecified] Onset: 04-01-2008 02-05-2023 Episodic Other and unspecified benign neoplasm (1 source) History of polyp of colon; Translations: [Personal history of colonic polyps] Onset: 12-07-2009 12-07-2009 Episodic Residual codes; unclassified (1 source) Family history of diabetes mellitus; Translations: [Family history of diabetes mellitus] Onset: 11-09-2009 11-09-2009 Episodic Results Test Name Value Interpretation Reference Range Facility MR/PAT.Nicola 12-30-2024 MR/PAT.[facility] Medical Records Department [address] [place] [address] PAT - Anesthesia 12/30/24 1554 MR#: [id number] Acct: [id number] Name: TONY JORDAN Rep #: [id number] : 1970 54 From: Agustín Hernandez MD PCP: Dr. 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 When Was Last Pacemaker Check QUESTION #4 FULL TEXT: You/Your Family Experience fever (hyperthermia) with Anesthesia Last Oral Intake Last Oral intake: Last Oral Intake NPO since Meds taken in AM with sips of water? Meds patient instructed to take am of surgery PONV PONV - inspection engineer: PONV - inspection engineer Female No 12/30/24 12:09 HX of Motion Sickness No 12/30/24 12:09 HX of N/V After Surgery No 12/30/24 12:09 Non-Smoker Yes 12/30/24 12:09 Duration of Surgery greater No 12/30/24 12:09 than 60 minutes Number of Risk Factors 1 12/30/24 12:09 PONV Score Low Risk 12/30/24 12:09 Height Weight Height Weight: Anesthesia: Height Weight Height 5 ft 10 in 11/24/24 08:20 Respiratory Assessment Respiratory Assessment - inspection engineer: Respiratory Tract Infection Hx - inspection engineer Hx Respiratory Tract Infection No 12/30/24 12:09 STOP Sleep Apnea STOP Sleep Apnea - inspection engineer: STOP Sleep Apnea - inspection engineer Hx Hypertension Yes 12/30/24 12:09 Hx Sleep Apnea Yes: positional 12/30/24 12:09 CPAP No 12/30/24 12:09 BIPAP No 12/30/24 12:09 Do you snore loudly (louder than talking or can be heard Do you often feel tired/ fatigued/ sleepy during daytime? Has anyone observed you stop breathing during sleep? STOP Results Positive 12/30/24 12:09 QUESTION #5 FULL TEXT : Do you snore loudly (louder than talking or can be heard through closed doors)? 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 Specify any problems Hx of Preganancy in last 3 N/A 12/30/24 12:09 Months Nurse Filling Out Transfusion JZOLLINGE 12/30/24 12:09 Questions: Date: 12/30/24 12/30/24 12:09 Time: 12:10 12/30/24 12:09 Patient unable to answer at this time (ie. confused, unrespo /Reproduction History /Reproductive History - inspection engineer: /Reproductive Hx- inspection engineer Hx Now No 12/30/24 12:09 Gestational Age (in weeks): EDC: Hx Hx Para Hx Section SAB No 12/30/24 12:09 PFS Medical History (Updated 12/30/24 @ 12:17 by Lelo Galeana) Non-smoker Sleep apnea Cardiology follow-up encounter Hyperlipidemia NSTEMI (non-ST elevated myocardial infarction) (12/24/23) Low testosterone Hypertension Home Medications ???Medication ???Instructions ???Recorded ???Last Taken ???Type testosterone 2 - 3 pump topical DAILY 12/24/23 Unknown History nitroglycerin 0.4 mg sublingual 0.4 mg sublingual Q5-15M PRN chest 01/13/24 Unknown Rx tablet (Nitrostat) pain #25 tabs amlodipine 5 mg tablet 5 mg PO DAILY #90 tabs 04/13/24 Un known Rx atorvastatin 20 mg tablet 20 mg PO QHS #90 tabs 04/13/24 Unk nown Rx lisinopril 20 mg tablet 20 mg PO QDAY #90 tabs 07/28/24 Un known Rx atenolol 25 mg tablet 25 mg PO QDAY 11/24/24 Unknown His tory Allergy/AdvReac Type Severity Reaction Status Date / Time prochlorperazine (From AdvReac Other Verified 12/30/24 12:03 Compazine) Family History ... Normal [facility] Cardiology Visit Reporton Cardiology Visit Report [facility] [address] [place] [address]. [address] [place] [address] OFFICE VISIT Date of Service: 11/24/24 MR#: [id number] Acct: [id number] Name: TONY JORDAN Rep #: [id number] : 1970 Provider: CHENG Mohamud Age/Sex: 54/M Location: [facility] [place] Status: Signed HPI HPI History of Present Illness Details: Tony Jordan is a 54-year-old gentleman who presented to [facility] on 12/24/2023 with chest discomfort. Chest discomfort started earlier in that day with retrosternal burning became pressure-like also radiated down his left arm. Troponins did trend to 6900. He underwent a diagnostic heart catheterization which revealed no significant obstructive coronary artery disease. Blood pressure was elevated when he came in to the hospital. Echocardiogram demonstrated preserved ejection fraction with no regional wall motion abnormalities. It was felt that this could have been related to vasospasm. Patient was discharged home on aspirin, beta-som, statin, his lisinopril was switched to amlodipine. From a cardiac standpoint, patient is doing well. He does not have any chest discomfort/heaviness/t ightness. His exercise tolerance is stable for his age. He does not have any worsening symptoms of shortness of breath. He denies any PND. He does not have any orthopnea. He does not have any symptoms of congestive heart failure. He does not have any palpitations that he is aware of. He does not have any lightheadedness or dizziness. He does not have any near-syncope or syncope. He does not have any lower extremity edema. He does not have any symptoms of claudication. Patient's blood pressure were not controlled on his metoprolol. He did not like the way the metoprolol made him feel. He did talk to his primary care doctor about this. They did switch him over to atenolol. Since that time his blood pressure has been adequately controlled. Intake Vital Signs 07/28/24 07:47 11/24/24 08:20 Height 5 ft 10 in 5 ft 10 in Weight: 214 lb 214 lb BMI 30.7 30.7 BP 138/93 H 126/82 H Blood Pressure Location Lt brachial Lt brachial Position Sitting Sitting Respiration 18 16 Pulse 79 73 Pulse Source Monitor Monitor Pulse Oximetry (%) 98 98 Oxygen Delivery Method room air Intake Visit Reasons: 4 M FU Air Pollution Auditor Required: No Accompanied by: Self Is patient in pain?: No Allergies prochlorperazine (From Compazine) Adverse Reaction (Verified 11/24/24 08:22) Other Medications ???Medication ???Instructions ???Recorded ???Confirmed ???Type testosterone 2 - 3 pump topical DAILY 12/24/23 11/24/24 History nitroglycerin 0.4 mg sublingual 0.4 mg sublingual Q5-15M PRN chest 01/13/24 11/24/24 Rx tablet (Nitrostat) pain #25 tabs amlodipine 5 mg tablet 5 mg PO DAILY #90 tabs 04/13/24 Rx atorvastatin 20 mg tablet 20 mg PO QHS #90 tabs 04/13/24 Rx lisinopril 20 mg tablet 20 mg PO QDAY #90 tabs 07/28/24 Rx atenolol 25 mg tablet 25 mg PO QDAY 11/24/24 11/24/24 Hi story Ejection fraction %: 55 [facility] Medical History Hyperlipidemia Hypertension NSTEMI (non-ST elevated myocardial infarction) (12/24/23) Low testosterone Surgical History S/P LASIK surgery Family History Brother No problems noted. Other CVA (cerebral vascular accident) Cancer Heart disease Hypertension Social History household members: spouse housing: house Smoking Status: Never smoker alcohol intake: current alcohol intake frequency: holidays/special occasions only substance use type: does not use ROS Const Const: Negative for fatigue, weakness, headache(s) or frequent falls Eyes Eyes: Negative for blurry vision ENT ENT: Negative for headache(s), dizziness or Nosebleed/epistaxis Cardio Chest Pain: No Palpitations: No Edema: None Muscle aches with walking: None Resp Respiratory: Negative for SOB with activity, SOB at rest or SOB orthopnea SOB lying down GI GI: Negative nausea, vomiting, heartburn, bright, red blood in stools or black,tarry stools : Negative for hematuria Neuro Neuro: Negative for dizziness, lightheadedness, near syncope, syncope, frequent falls, headache(s), weakness or blurry vision Endo Endo: Negative for fatigue Cardiology Exam Const Appearance: cooperative, no acute distress and well developed Orientation: alert, awake and oriented x3 Head Head: normocephalic and atraumatic Mouth: moist mucous membranes Eyes General: appearance normal, both eyes and all related structures Conjunctivae: conjunctivae normal (more content not included)... Normal [facility] Diagnostic total prostate sp ecific antigen (PSA) measurementOrdered By: Rahul Tracey on 08-03-2024 Prostate Specific Antigen Total 1.65 ng/mL 0.00-4.00 [facility] Comment on above: This test was perfor med using the [employer] tPSA method. Measured values of a patient sample can vary depending on the testing procedure used. PSA values determined on patient samples by different testing procedures cannot be used interchangeably. If there is a change in PSA assays while monitoring therapy, sequential testing should be performed to confirm baseline values. L509.3001on 08-03-2024 Testosterone [Mass/Vol] 434.00 ng/dL Normal 300-890 [facility] Comment on above: Performed By: #### L 509.3001, L501.9940 #### [facility] [address] [place], [address] Laboratory - Chemistry and C hemistry - challengeOrdered By: Rahul Tracey on 08-03-2024 Testosterone [Mass/Vol] 434.00 ng/dL 300-890 [facility] PSA,Total- [employer] 04- PSA, DIAGNOSTIC 1.65 ng/mL Normal 0.00-4.00 [facility] Comment on above: Result Comment: This test was performed using the [employer] tPSA method. Measured values of a patient??sample can vary depending on the testing procedure used. PSA values determined on patient samples by different testing procedures cannot be used interchangeably. If there is a change in PSA assays while monitoring therapy, sequential testing should be performed to confirm baseline values. Performed By: #### L 509.3001, L501.9940 #### [facility] [address] [place], [address] Cardiology Visit Reporton Cardiology Visit Report [facility] [address] [place] [address] OFFICE VISIT Date of Service: 07/28/24 MR#: [id number] Acct: [id number] Name: TONY JORDAN Rep #: [id number] : 1970 Provider: CHENG Mohamud Age/Sex: 54/M Location: [facility] [place] Status: Signed HPI HPI History of Present Illness Details: Tony Jordan is a 53-year-old gentleman who presented to [facility] on 12/24/2023 with chest discomfort. Chest discomfort started earlier in that day with retrosternal burning became pressure-like also radiated down his left arm. Troponins did trend to 6900. He underwent a diagnostic heart catheterization which revealed no significant obstructive coronary artery disease. Blood pressure was elevated when he came in to the hospital. Echocardiogram demonstrated preserved ejection fraction with no regional wall motion abnormalities. It was felt that this could have been related to vasospasm. Patient was discharged home on aspirin, beta-som, statin, his lisinopril was switched to amlodipine. Pt has not had any further episodes of CP. He was having issues with his BP readings. He tried increasing his amlodipine he did not like how he felt. He then went back to 5 mg and restarted his lisinopril. BP readings at home are better, although elevated today. Intake Vital Signs 04/13/24 08:27 07/28/24 07:47 Height 5 ft 10 in 5 ft 10 in Weight: 214 lb BMI 30.7 BP 130/90 H 138/93 H Blood Pressure Location Lt brachial Position Sitting Respiration 18 Pulse 79 Pulse Source Monitor Pulse Oximetry (%) 98 Intake Visit Reasons: 4 M Air Pollution Auditor Required: No Is patient in pain?: No Allergies prochlorperazine (From Compazine) Adverse Reaction (Verified 04/13/24 08:27) Other Medications ???Medication ???Instructions ???Recorded ???Confirmed ???Type testosterone 2 - 3 pump topical DAILY 12/24/23 07/28/24 History nitroglycerin 0.4 mg sublingual 0.4 mg sublingual Q5-15M PRN chest 01/13/24 07/28/24 Rx tablet (Nitrostat) pain #25 tabs amlodipine 5 mg tablet 5 mg PO DAILY #90 tabs 04/13/24 Rx atorvastatin 20 mg tablet 20 mg PO QHS #90 tabs 04/13/24 Rx lisinopril 20 mg tablet 20 mg PO QDAY #90 tabs 07/28/24 Rx Ejection fraction %: 55 Have you fallen in the past year?: No [facility] Medical History (Updated 07/28/24 @ 08:48 by Ghislaine ANAND, PA) Hyperlipidemia Hypertension NSTEMI (non-ST elevated myocardial infarction) (12/24/23) Low testosterone Surgical History S/P LASIK surgery Family History Brother No problems noted. Other CVA (cerebral vascular accident) Cancer Heart disease Hypertension Social History household members: spouse housing: house Smoking Status: Never smoker alcohol intake: current alcohol intake frequency: holidays/special occasions only substance use type: does not use ROS Const Const: Negative for fatigue, weakness, headache(s) or frequent falls Eyes Eyes: Negative for blurry vision ENT ENT: Negative for headache(s), dizziness or Nosebleed/epistaxis Cardio Chest Pain: No Palpitations: No Edema: None Muscle aches with walking: None Resp Respiratory: Negative for SOB with activity, SOB at rest or SOB orthopnea SOB lying down GI GI: Negative nausea, vomiting, heartburn, bright, red blood in stools or black,tarry stools : Negative for hematuria Neuro Neuro: Negative for dizziness, lightheadedness, near syncope, syncope, frequent falls, headache(s), weakness or blurry vision Endo Endo: Negative for fatigue Cardiology Exam Const Appearance: cooperative, no acute distress and well developed Orientation: alert, awake and oriented x3 Head Head: normocephalic and atraumatic Mouth: moist mucous membranes Eyes General: appearance normal, both eyes and all related structures Conjunctivae: conjunctivae normal Pupils: PERRL EOM: EOM intact bilaterally Neck Neck: normal visual inspection, no lymphadenopathy and no JVD Carotids: Negative bruit Neck Mass: Negative Neck mass Chest Chest inspection: normal inspection of the chest and symmetric chest movement Auscultation: Bilateral: Clear to Auscultation Cardio Palpation: normal PMI Rate: regular rate Rhythm: regular rhythm Heart sounds: S1 normal and S2 normal; Negative rub, gallop or murmur GI GI: normal to inspection, soft, no hepatosplenomegaly and bowel sounds present; Negative tender Neuro General: patient alert, patient awake, patient oriented x3, CN's II-XI intact bilaterally and moves all extremities (more content not included)... Normal [facility] Bilirubin directOrdered By: Ghislaine Valentine on 07-12-2024 Bilirubin.direct [Mass/Vol] 0.68 mg/dL High 0.00-0.30 [facility] Bilirubin, totalOrdered By: Ghislaine Valentine on 07-12-2024 Bilirubin [Mass/Vol] 1.75 mg/dL High 0.00-1.30 [facility] Calculated very low density lipoprotein (VLDL) cholesterol measurementOrdered By: Ghislaine Valentine on 07-12-2024 VLDL Cholesterol 16 mg/dL 5-40 [facility] LDL calc ser/plasOrdered By: Ghislaine Valentine on 07-12-2024 LDL Cholesterol, Calculated 54 mg/dL [facility] Comment on above: Injrnxllps=565-911 m g/dL & Higher Xest=394 mg/dL or greater Laboratory - Chemistry and C hemistry - challengeOrdered By: Ghislaine Valentine on 07-12-2024 AST [Catalytic activity/Vol] 37 U/L <38 [facility] Lipid Profileon 07-12-2024 CHOL:HDL 2.47 Normal [facility] Comment on above: Order Comment: Comme nts: okay to do non fasting Performed By: #### L 500.4100, L500.3400 #### [facility] [address] [place], [place], [id number] Cholesterol [Mass/Vol] 118 mg/dL Normal <=200 [facility] Comment on above: Order Comment: Comme nts: okay to do non fasting Result Comment: Chol esterol level, Desirable <200 mg/dL Borderline high cholesterol 200-239 mg/dL High cholesterol >=240 mg/dL Recommendations of the NCEP Adult Treatment Panel for the following risk-cutoff thresholds for the [place] population. Performed By: #### L 500.4100, L500.3400 #### [facility] [address] [place], [place], [id number] Cholesterol in HDL [Mass/Vol] 48 mg/dL Normal [facility] Comment on above: Order Comment: Comme nts: okay to do non fasting Result Comment: Rhonda onal Cholesterol Education Program (NCEP) guidelines: <40 mg/dL: Low HDL-cholesterol (major risk factor for CHD) >= 60 mg/dL: High HDL-cholesterol (negative risk factor for CHD) HDL-cholesterol is affected by a number of factors, e.g. smoking, exercise, hormones, sex and age. Performed By: #### L 500.4100, L500.3400 #### [facility] [address] [place], [address] Cholesterol in LDL [Mass/Vol] 54 mg/dL Normal [facility] Comment on above: Order Comment: Comme nts: okay to do non fasting Result Comment: Bord xtacdm=912-310 mg/dL Higher Spku=985 mg/dL or greater Performed By: #### L 500.4100, L500.3400 #### [facility] [address] [place], [address] Cholesterol in VLDL [Mass/Vol] 16 mg/dL Normal 5-40 [facility] Comment on above: Order Comment: Comme nts: okay to do non fasting Performed By: #### L 500.4100, L500.3400 #### [facility] [address] [place], [address] Triglyceride [Mass/Vol] 82 mg/dL Normal [facility] Comment on above: Order Comment: Comme nts: okay to do non fasting Result Comment: The drugs N-Acetylcysteine and Metamizole may falsely depress this assay. Normal range: <150 mg/dL Borderline High: 150-199 mg/dL High: 200-499 mg/dL Very High: >500 mg/dL Performed By: #### L 500.4100, L500.3400 #### [facility] [address] [place], [address] Liver Profileon 07-12-2024 Albumin [Mass/Vol] 4.4 g/dL Normal 3.5-5.0 [facility] Comment on above: Order Comment: Comme nts: okay to do non fasting okay to do non fasting Performed By: #### L 500.4100, L500.3400 #### [facility] [address] [place], [address] ALK PHOS 64 U/L Normal 40-129 [facility] Comment on above: Order Comment: Comme nts: okay to do non fasting okay to do non fasting Performed By: #### L 500.4100, L500.3400 #### [facility] [address] [place], [address] ALT [Catalytic activity/Vol] 41 U/L Normal <=46 [facility] Comment on above: Order Comment: Comme nts: okay to do non fasting okay to do non fasting Performed By: #### L 500.4100, L500.3400 #### [facility] [address] [place], [address] AST [Catalytic activity/Vol] 37 U/L Normal <=37 [facility] Comment on above: Order Comment: Comme nts: okay to do non fasting okay to do non fasting Performed By: #### L 500.4100, L500.3400 #### [facility] [address] [place], [address] Bilirubin [Mass/Vol] 1.75 mg/dL High 0.00-1.30 [facility] Comment on above: Order Comment: Comme nts: okay to do non fasting okay to do non fasting Performed By: #### L 500.4100, L500.3400 #### [facility] [address] [place], [address] Bilirubin.direct [Mass/Vol] 0.68 mg/dL High 0.00-0.30 [facility] Comment on above: Order Comment: Comme nts: okay to do non fasting okay to do non fasting Performed By: #### L 500.4100, L500.3400 #### [facility] [address] [place], [address] Globulin (S) [Mass/Vol] 2.4 g/dL Normal 2.2-4.2 [facility] Comment on above: Order Comment: Comme nts: okay to do non fasting okay to do non fasting Performed By: #### L 500.4100, L500.3400 #### [facility] [address] [place], [address] T PROT 6.9 g/dL Normal 5.9-8.4 [facility] Comment on above: Order Comment: Comme nts: okay to do non fasting okay to do non fasting Performed By: #### L 500.4100, L500.3400 #### [facility] [address] [place], [address] Screening total cholesterol/ high density lipoprotein (HDL) cholesterol ratioOrdered By: Ghislaine Valentine on 07-12-2024 Cholesterol.total/Chol esterol in HDL [Mass ratio] 2.47 {ratio} [facility] Serum globulin measurementOr dered By: Ghislaine Valentine on 07-12-2024 Globulin (S) [Mass/Vol] 2.4 g/dL 2.2-4.2 [facility] Serum or plasma alanine lozoya otransferase (ALT) measurementOrdered By: Ghislaine Valentine on 07-12-2024 ALT [Catalytic activity/Vol] 41 U/L <47 [facility] Serum or plasma albumin jonatan urement (mass/volume)Ordered By: Ghilsaine Valentine on 07-12-2024 Albumin [Mass/Vol] 4.4 g/dL 3.5-5.0 [facility] Serum or plasma alkaline ruben sphatase measurementOrdered By: Ghislaine Valentine on 07-12-2024 ALP [Catalytic activity/Vol] 64 U/L 40-129 [facility] Serum or plasma cholesterol in HDL measurement (mass/volume)Ordered By: Ghislaine Valentine on 07-12-2024 Cholesterol in HDL [Mass/Vol] 48 mg/dL >40 [facility] Comment on above: National Cholesterol Education Program (NCEP) guidelines:<40 mg/dL: Low HDL-cholesterol (major risk factor for CHD)>= 60 mg/dL: High HDL-cholesterol (negative risk factor for CHD)HDL-cholesterol is affected by a number of factors, e.g. smoking, exercise, hormones, sex and age. Serum or plasma cholesterol measurement (mass/volume)Ordered By: Ghislaine Valentine on 07-12-2024 Cholesterol [Mass/Vol] 118 mg/dL <201 [facility] Comment on above: Cholesterol level, D esirable <200 mg/dLBorderline high cholesterol 200-239 mg/dLHigh cholesterol >=240 mg/dLRecommendations of the NCEP Adult Treatment Panel for the following risk-cutoff thresholds for the [place] population. Total proteinOrdered By: Jaleel Valentine on 07-12-2024 Protein [Mass/Vol] 6.9 g/dL 5.9-8.4 [facility] Triglycerides measurementOrd ered By: Ghislaine Valentine on 07-12-2024 Triglyceride [Mass/Vol] 82 mg/dL <199 [facility] Comment on above: The drugs N-Acetylcy steine and Metamizole may falsely depress this assay. Normal range: <150 mg/dLBorderline High: 150-199 mg/dLHigh: 200-499 mg/dLVery High: >500 mg/dL Cardiology Visit Reporton Cardiology Visit Report [facility] [address] [place] [address] OFFICE VISIT Date of Service: 04/13/24 MR#: [id number] Acct: [id number] Name: TONY JORDAN Rep #: [id number] : 1970 Provider: CHENG Mohamud Age/Sex: 54/M Location: [facility] [place] Status: Signed HPI HPI History of Present Illness Details: Tony Jordan is a 53-year-old gentleman who presented to [facility] on 12/24/2023 with chest discomfort. Chest discomfort started earlier in that day with retrosternal burning became pressure-like also radiated down his left arm. Troponins did trend to 6900. He underwent a diagnostic heart catheterization which revealed no significant obstructive coronary artery disease. Blood pressure was elevated when he came in to the hospital. Echocardiogram demonstrated preserved ejection fraction with no regional wall motion abnormalities. It was felt that this could have been related to vasospasm. Patient was discharged home on aspirin, beta-som, statin, his lisinopril was switched to amlodipine. Patient states that since being home he has not had any further events. He is active. He does not have any chest pain. Blood pressures have been okay but at times he finds that it is elevated. He has not been taking his statin on a routine basis. He has not been taking his evening dose of metoprolol. He does not have any lightheadedness, dizziness. He does not have any palpitations. He does not have any worsening shortness of breath. 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 Is patient in pain?: No Allergies prochlorperazine (From Compazine) Adverse Reaction (Verified 04/13/24 08:27) Other Medications ???Medication ???Instructions ???Recorded ???Confirmed ???Type testosterone 2 - 3 pump topical DAILY 12/24/23 04/13/24 History nitroglycerin 0.4 mg sublingual 0.4 mg sublingual Q5-15M PRN chest 01/13/24 04/13/24 Rx tablet (Nitrostat) pain #25 tabs amlodipine 5 mg tablet 5 mg PO DAILY #90 tabs 04/13/24 04/13/24 Rx atorvastatin 20 mg tablet 20 mg PO QHS #90 tabs 04/13/24 04/13/24 Rx PFSH Medical History Hypertension NSTEMI (non-ST elevated myocardial infarction) (12/24/23) Low testosterone Surgical History S/P LASIK surgery Family History Brother No problems noted. Other CVA (cerebral vascular accident) Cancer Heart disease Hypertension Social History household members: spouse housing: house Smoking Status: Never smoker alcohol intake: current alcohol intake frequency: holidays/special occasions only substance use type: does not use ROS Const Const: Negative for fatigue, weakness, headache(s), frequent falls, night sweats, daytime sleepiness, difficulty sleeping, excessive sweating or weight gain Eyes Eyes: Negative for loss of peripheral vision, transient loss of vision, blurry vision, change in vision or floaters ENT ENT: Negative for headache(s), dizziness, hearing loss, tinnitus, Nosebleed/epistaxis, balance problems or bleeding gums Cardio Chest Pain: No Palpitations: No Edema: None Muscle aches with walking: None Resp Respiratory: Negative for SOB with activity, SOB at rest, SOB orthopnea SOB lying down, Cough, chest congestion, wheezing, crackles or paroxysmal nocturnal dyspnea GI GI: Negative nausea, vomiting, heartburn, bloating, bright, red blood in stools or black,tarry stools : Negative for hematuria or frequent nighttime urination/ nocturia Musc Musc: Negative for muscle aches/ myalgia, muscle weakness, joint pain or balance problems Skin Skin: Negative non-healing lesions, rash or unusual bruising Neuro Neuro: Negative for dizziness, lightheadedness, near syncope, syncope, orthostatic symptoms, frequent falls, headache(s), weakness or blurry vision Mike Hematologic/Lymphatic: Negative for easy bleeding or easy bruising Endo Endo: Negative for fatigue or excessive sweating Psych Psych: Negative for anxiety or depression Allergy Allergy/Immunology: Negative for rash Cardiology Exam Const Appearance: cooperative, no acute distress and well developed Orientation: alert, awake and oriented x3 (more content not included)... Normal [facility] Cardiology Visit Reporton Cardiology Visit Report [facility] [address] [place], [place] [id number] OFFICE VISIT Date of Service: 01/13/24 MR#: [id number] Acct: [id number] Name: TONY JORDAN Rep #: [id number] : 1970 Provider: CHENG Mohamud Age/Sex: 53/M Location: [facility] [place] Status: Signed HPI [facility] History of Present Illness Details: Tony Jordan is a 53-year-old gentleman who presented to [facility] on 12/24/2023 with chest discomfort. Chest discomfort started earlier in that day with retrosternal burning became pressure-like also radiated down his left arm. Troponins did trend to 6900. He underwent a diagnostic heart catheterization which revealed no significant obstructive coronary artery disease. Blood pressure was elevated when he came in to the hospital. Echocardiogram demonstrated preserved ejection fraction with no regional wall motion abnormalities. It was felt that this could have been related to vasospasm. Patient was discharged home on aspirin, beta-som, statin, his lisinopril was switched to amlodipine. Patient states that since being home he has not had any further events. He is active. He does not have any chest pain. Blood pressures have been okay. He does not have any lightheadedness, dizziness. He does not have any palpitations. He does not have any worsening shortness of breath. Intake Vital Signs 12/24/23 23:34 01/13/24 09:24 Height 5 ft 10 in 5 ft 10 in Weight: 211 lb BMI 30.2 BP 118/82 H Blood Pressure Location Lt brachial Position Sitting Respiration 16 Pulse 70 Pulse Source Monitor Oxygen Delivery Method room air Intake Visit Reasons: S/P 12/24 [facility] NSTEMI Accompanied by: Self Is patient in pain?: No Allergies prochlorperazine (From Compazine) Adverse Reaction (Verified 01/13/24 09:24) Other Medications ???Medication ???Instructions ???Recorded ???Confirmed ???Type testosterone 2 - 3 pump topical DAILY 12/24/23 01/13/24 History aspirin 81 mg tablet,delayed 81 mg PO BREAKFAST 30 days #30 tabs 12/25/23 01/13/24 Rx release amlodipine 2.5 mg tablet 2.5 mg PO DAILY #90 tabs 01/13/24 01/13/24 Rx atorvastatin 40 mg tablet 40 mg PO QHS #90 tabs 01/13/24 01/13/24 Rx metoprolol tartrate 25 mg tablet 25 mg PO BID #180 tabs 01/13/24 01/13/24 Rx nitroglycerin 0.4 mg sublingual 0.4 mg sublingual Q5-15M PRN chest 01/13/24 01/13/24 Rx tablet (Nitrostat) pain #25 tabs Ejection fraction %: 55 PFSH Medical History (Updated 01/13/24 @ 15:26 by Ghislaine Valentine PA, PA) Hypertension NSTEMI (non-ST elevated myocardial infarction) (12/24/23) Low testosterone Surgical History S/P LASIK surgery Family History Brother No problems noted. Other CVA (cerebral vascular accident) Cancer Heart disease Hypertension Social History household members: spouse housing: house Smoking Status: Never smoker alcohol intake: current alcohol intake frequency: holidays/special occasions only substance use type: does not use ROS Const Const: Negative for fatigue, weakness, headache(s), frequent falls, night sweats, daytime sleepiness, difficulty sleeping, excessive sweating or weight gain Eyes Eyes: Negative for loss of peripheral vision, transient loss of vision, blurry vision, change in vision or floaters ENT ENT: Negative for headache(s), dizziness, hearing loss, tinnitus, Nosebleed/epistaxis, balance problems or bleeding gums Cardio Chest Pain: No Palpitations: No Edema: None Muscle aches with walking: None Resp Respiratory: Negative for SOB with activity, SOB at rest, SOB orthopnea SOB lying down, Cough, chest congestion, wheezing, crackles or paroxysmal nocturnal dyspnea GI GI: Negative nausea, vomiting, heartburn, bloating, bright, red blood in stools or black,tarry stools : Negative for hematuria or frequent nighttime urination/ nocturia Musc Musc: Negative for muscle aches/ myalgia, muscle weakness, joint pain or balance problems Skin Skin: Negative non-healing lesions, rash or unusual bruising Neuro Neuro: Negative for dizziness, lightheadedness, near syncope, syncope, orthostatic symptoms, frequent falls, headache(s), weakness or blurry vision Mike Hematologic/Lymphatic: Negative for easy bleeding or easy bruising Endo Endo: Negative for fatigue or excessive sweating Psych Psych: Negative for anxiety or depression Allergy Allergy/Immunology: Negative for rash Cardiology Exam Const Appearance: cooperative, no acute distress and well developed Orientation: alert, awake and oriented x3 Head Head: normocephalic and atraumatic Mouth: moist mucous membranes Eyes (more content not included)... [facility] ([facility] ) STARLATONY GOINS ([id number]) 1970 M Date Time Provider Department 09/11/23 10:45 AM RAINA SWANSON [facility] During your visit today, we recorded the following information about you: Temperature Pulse Respiration Blood pressure 97.2 degrees 66/minute 16/minute 132/68 Weight 97.7 kg Raina Swanson APRN.[facility] 09/11/2023 11:05 AM Signed CC: Patient presents with: Sore Throat: X4 days HPI: Tony Jordan is a 53 year old male who presents to the office with complaint of sore throat for 4 days. Symptoms are worsening Associated symptoms includes sore throat. Denies body aches, fever, ear pain, nausea, vomiting , and diarrhea. Treatments tried include nothing so far. with no relief of symptoms. Sick contacts: unknown. History of asthma, frequent episodes of bronchitis, chronic bronchitis, bronchiectasis or COPD: No Smoker: No Seasonal/environmental allergies: No The ROS is otherwise negative. The patient's pmh, medications, allergies, and past visits are reviewed. PHYSICAL EXAM: BP 132/68 Pulse 66 Temp 36.2 ?C (97.2 ?F) Resp 16 Wt 97.7 kg (215 lb 6.2 oz) SpO2 98% General appearance: alert, cooperative, pleasant, in no acute distress Head: Normocephalic Eyes: EOM's intact, conjunctiva pink and moist, no icterus, sclera white, non-injected Ears: Right ear: External ear/canal- Normal, TM - clear with good landmarks. Left ear: External ear/canal- Normal, TM - clear with good landmarks Oropharynx:moderate erythema, without exudates present Heart: Negative. RRR without obvious murmur, gallop, or rubs. No ectopy. Lungs: clear to auscultation, without rales or wheeze, good air exchange PAST MEDICAL HISTORY Diagnosis Date Personal history of colonic polyps PAST SURGICAL HISTORY Procedure Laterality Date COLONOSCOPY colonoscopy COLONOSCOPY FLX DX W/COLLJ SPEC WHEN PFRMD 01/01/10 normal PAST SURGICAL HISTORY OF lasik PAST SURGICAL HISTORY OF vasectomy ALLERGIES Compazine [Prochlorperazine Edisylate] MEDICATIONS LISINOPRIL ORAL Take by mouth. guaiFENesin (MUCINEX) 600 mg 12 hr tablet Take 2 tablets by mouth twice daily. benzonatate (TESSALON PERLE) 100 mg capsule Take 1 capsule by mouth three times daily as needed for Cough. FAMILY HISTORY Problem Relation Age of Onset Hypertension Mother Arthritis Mother Hypertension Father GI Father UC, s/p colectomy, multiple hernias Stroke Maternal Grandmother Stroke Maternal Grandfather Cancer Paternal Grandmother successfully treated Cancer Paternal Grandfather mult myeloma Diabetes Maternal Grandmother Diabetes Paternal Grandmother Prostate Cancer Other none Coronary Artery Disease Other no first-degree Colon Cancer Other none Social History Tobacco Use Smoking status: Never Smokeless tobacco: Never Substance Use Topics Alcohol use: Yes Alcohol/week: 4.0 standard drinks of alcohol Types: 4 Cans of Beer (12oz) per week Drug use: No ASSESSMENT/PLAN: 1. Sore throat - ICD9: 462, ICD10: J02.9 - STREP A MOLECULAR (POC) - neg - PREDNISONE 20 MG TABLET Prescription instructions reviewed with patient as applicable. Potential red flag symptoms discussed with the patient. Reviewed appropriate action plan to take if red flag symptoms occur. Patient agreeable to treatment plan. Raina Swanson APRN.[employer] Allergies As of Date: 09/11/2023 Noted Allergy Reaction COMPAZINE (PROCHLORPERAZINE EDISY*11/09/2009 1 - Mental Status Change Date Reviewed: 09/11/2023 Reviewed by: Jerrod, Selena - Fully Assessed Reason for Visit: Sore Throat [200] Cmt: X4 days Primary Visit Diagnosis:Sore throat [J02.9] Order(s):STREP A MOLECULAR (POC) [[id number]] Order #: [id number]. #:[id number] predniSONE (DELTASONE) 20 mg tabletTake 1 tablet by mouth once daily for 5 days.Disp: 5 tabletRfl: 0 Prescriptions as of 09/11/2023 - LISINOPRIL ORAL Take by mouth. - predniSONE (DELTASONE) 20 mg tablet Take 1 tablet by mouth once daily for 5 days. - guaiFENesin (MUCINEX) 600 mg 12 hr tablet Take 2 tablets by mouth twice daily. - benzonatate (TESSALON PERLE) 100 mg capsule Take 1 capsule by mouth three times daily as needed for Cough. Problem List As Of Date 09/11/2023 Noted Resolved BENIGN NEOPLASM LG BOWEL [D12.6] 04/01/2008 Fam Hx-Diabetes Mellitus 11/09/2009 Personal History of Colonic Polyps [Z86.010] 12/07/2009 Prescriptions ordered this encounter Disp Refills Start End PREDNISONE 20 MG TABLET 5 ta* 0 09/11/2023 09/16/2023 Route: ORAL Sig: Take 1 tablet by mouth once daily for 5 days. Encounter Status:Closed by RAINA SWANSON on 09/11/23 Normal [facility] STREP A MOLECULAR (POC)on Procedural Control Valid [facility] Strep A (POCT) Negative Negative [facility] Absolute lymphocyte countOrd ered By: Rahul Tracey on 08-20-2023 Lymphocytes Auto (Unsp spec) [#/Vol] 1.90 10*3/uL 0.83-4.51 [facility] Automated lymphocyte count a s percentage of total leukocytesOrdered By: Rahul Tracey on 08-20-2023 Lymphocytes/100 WBC Auto (Unsp spec) 34.0 % 19-41 [facility] Basophil percentageOrdered B y: Rahul Tracey on 08-20-2023 Basophils/100 WBC (Bld) 0.9 % 0-1 [facility] Bilirubin [Mass/Vol] 1.20 mg/dL 0.20-1.00 [facility] Comment on above: For patients on eltr ombopag therapy, use of Dimension Cooter TBIL is not recommended. Chloride [Moles/Vol] 106 mmol/L 98-107 [facility] Cholesterol [Mass/Vol] 179 mg/dL <200 [facility] Comment on above: <200 mg/dL Desirable 200-240 mg/dL Borderline >240 mg/dL High Risk Eosinophils/100 WBC (Bld) 3.4 % 0-5 [facility] Glucose [Mass/Vol] 109 mg/dL 74-106 [place] [facility] Comment on above: Fasting Glucose resu lt from 100 to 125 mg/dL suggests IMPAIRED HOMEOSTASIS per A.D.A. criteria. Hemoglobin (Bld) [Mass/Vol] 14.4 g/dL 13.0-16.5 [facility] Monocytes/100 WBC (Bld) 8.1 % 0-10 [facility] Neutrophils (Bld) [#/Vol] 3.0 10*3/uL 2.0-7.7 [facility] Neutrophils/100 WBC (Bld) 53.2 % 47-70 [facility] Potassium [Moles/Vol] 4.6 mmol/L 3.5-5.1 [facility] Protein [Mass/Vol] 7.0 g/dL 6.4-8.2 [facility] Sodium [Moles/Vol] 137 mmol/L 136-145 [facility] Testosterone [Mass/Vol] 1021.78 ng/dL [facility] Comment on above: CENTRAL 90% REFERENC E RANGES MALE AGE <50 197.44 - 669.58 ng/dL MALE AGE > or = 50 187.72 - 684.19 ng/dL FEMALE AGE <50 8.38 - 35.01 ng/dL FEMALE AGE > or = 50 <7.00 - 35.92 ng/dL Effective as of 11/28/20 Triglyceride [Mass/Vol] 106 mg/dL <199 [facility] Comment on above: The drugs N-Acetylcy steine and Metamizole may falsely depress this assay.Serum Triglycerides Reference Interval Normal <150 mg/dL Borderline high 150 - 199 mg/dL High 200 - 499 mg/dL Very High > or = 500 mg/dL WBC (Bld) [#/Vol] 5.6 10*3/uL 4.4-11.0 [facility] Determination of erythrocyte mean corpuscular volume (MCV)Ordered By: Rahul Tracey on 08-20-2023 MCV (RBC) [Entitic vol] 89.8 fL 80-94 [facility] Erythrocyte distribution wid th ratioOrdered By: Rahul Tracey on 08-20-2023 Erythrocyte distribution width (RBC) [Ratio] 12.2 % 11.6-14.6 [facility] Erythrocyte distribution wid th standard deviationOrdered By: Rahul Tracey on 08-20-2023 Erythrocyte distribution width (RBC) [Entitic vol] 39.9 fL 35.1-43.9 [facility] Hematocrit Auto (Bld) [Volum e fraction]Ordered By: Rahul Tracey on 08-20-2023 Hematocrit (Bld) [Volume fraction] 44.2 % 40-54 [facility] Immature granulocytes/100 WB C Auto (Bld)Ordered By: Rahul Tracey on 08-20-2023 Immature granulocytes/100 WBC (Bld) 0.400 % 0.0-0.9 [facility] Comment on above: IG% - Immature Granu locytes (promyelocytes, myelocytes and metamyelocytes) > 1% indicates that a LEFT SHIFT is Present. Laboratory - Chemistry and C hemistry - challengeOrdered By: Rahul Tracey on 08-20-2023 Albumin/Globulin [Mass ratio] 1.2 {ratio} 0.9-2.4 [facility] ALP [Catalytic activity/Vol] 56 U/L 45-117 [facility] ALT [Catalytic activity/Vol] 48 U/L 16-61 [facility] Cholesterol in HDL [Mass/Vol] 40 mg/dL >40 [facility] Comment on above: The drugs N-Acetylcy steine and Metamizole may falsely depress this assay. Reference Range HDL <40 mg/dL Low HDL Cholesterol HDL >or= 60 mg/dL High HDL Cholesterol Cholesterol in LDL [Mass/Vol] 118 mg/dL 0-130 [facility] CO2 [Moles/Vol] 27.0 mmol/L 21.0-32.0 [facility] Globulin (S) [Mass/Vol] 3.2 g/dL 2.2-4.2 [facility] Urea nitrogen/Creatinine [Mass ratio] 12.7 mg/mg 10-20 [facility] Laboratory - Hematology and Cell countsOrdered By: Rahul Tracey on 08-20-2023 MCH (RBC) [Entitic mass] 29.3 pg 27.0-32.0 [facility] MCHC (RBC) [Mass/Vol] 32.6 g/dL 32-36 [facility] Nucleated RBC/100 WBC (Bld) [Ratio] 0 % 0-5 [facility] Platelet mean volume (Bld) [Entitic vol] 10.8 fL 6.2-12.0 [facility] Platelets (Bld) [#/Vol] 232 10*3/uL 150-450 [facility] Lipoprotein a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
--- NOTE | 2024-12-31 06:54 | PCM.PRE.AN2 ---
ASA Classification* ASA Classification ASA Classification: 2 Assessment & Plan Anesthesia* Anesthesia Assessment Anesthesia Assessment: Discussed sedation and/or anesthesia options, risks, benefits, and alternatives with patient/parents/legal guardian/POA. Questions invited. The patient/parents/legal guardian/POA seems to understand and agrees to proceed with anesthesia plan. Reviewed the physical assessment, medical history, allergy history and patient home medications list prior to surgery/procedure/anesthetic and documented any changes. Performed airway and anesthesia risk assessments. Anesthesia Type Anesthesia Type: MAC Anesthesia Focused Assessment* Temperature: 97.0 F Pulse Rate: 70 Blood Pressure: 97/64 Respiratory Rate: 16 Pulse Ox: 97 Airway Assessment Mouth opens: >3 cm Mallampati Score: II Labs Anesthesia Preop lab: CBC WBC 7.6 K/mm3 (4.4-11.0) 12/25/23 04:49 12/25/23 RBC 4.69 M/mm3 (4.6-6.2) 12/25/23 04:49 12/25/23 Hgb 14.0 g/dL (13.0-16.5) 12/25/23 04:49 12/25/23 Hct 41.2 % (40-54) 12/25/23 04:49 12/25/23 Plt Count 220 K/mm3 (150-450) 12/25/23 04:49 12/25/23 CHEMISTRY Potassium 3.7 mmol/L (3.5-5.1) 12/25/23 04:49 12/25/23 Sodium 140 mmol/L (136-145) 12/25/23 04:49 12/25/23 Magnesium 2.0 mg/dL (1.6-2.6) 12/25/23 04:49 12/25/23 Phosphorus 4.0 mg/dL (2.5-4.9) 12/25/23 04:49 12/25/23 BUN 10 mg/dL (7-18) 12/25/23 04:49 12/25/23 Creatinine 0.65 mg/dL (0.70-1.30) L 12/25/23 04:49 12/25/23 Glucose 112 mg/dL (74-106) H 12/25/23 04:49 12/25/23 TSH 2.27 uIU/mL (0.358-3.74) 08/16/22 09:10 08/16/22 COAG PT 14.6 SECONDS (11.7-14.9) 12/24/23 22:49 12/24/23 Pre-Assessment Diagnosis/Proposed Procedure Planned Operative Procedure(s): Colonoscopy - Open Access Anesthesia History 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 When Was Last Pacemaker Check QUESTION #4 FULL TEXT: You/Your Family Experience fever (hyperthermia) with Anesthesia Last Oral Intake Last Oral intake: Last Oral Intake NPO since 23:30 12/31/24 06:50 Meds taken in AM with sips of No 12/31/24 06:50 water? Meds patient instructed to take am of surgery PONV PONV - paper cup machine tender: PONV - paper cup machine tender Female No 12/30/24 12:09 HX of Motion Sickness No 12/30/24 12:09 HX of N/V After Surgery No 12/30/24 12:09 Non-Smoker Yes 12/30/24 12:09 Duration of Surgery greater No 12/30/24 12:09 than 60 minutes Number of Risk Factors 1 12/30/24 12:09 PONV Score Low Risk 12/30/24 12:09 Height & Weight Height & Weight: Anesthesia: Height & Weight Height 5 ft 1 in 12/31/24 06:50 Weight: 93.077 kg 12/31/24 06:50 Body Mass Index (BMI) 38.7 12/31/24 06:50 Respiratory Assessment Respiratory Assessment - paper cup machine tender: Respiratory Tract Infection Hx - paper cup machine tender Hx Respiratory Tract Infection No 12/30/24 12:09 STOP Sleep Apnea STOP Sleep Apnea - paper cup machine tender: STOP Sleep Apnea - paper cup machine tender Hx Hypertension Yes 12/30/24 12:09 Hx Sleep Apnea Yes: positional 12/30/24 12:09 CPAP No 12/30/24 12:09 BIPAP No 12/30/24 12:09 Do you snore loudly (louder than talking or can be heard Do you often feel tired/ fatigued/ sleepy during daytime? Has anyone observed you stop breathing during sleep? STOP Results Positive 12/30/24 12:09 QUESTION #5 FULL TEXT : Do you snore loudly (louder than talking or can be heard through closed doors)? 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 Specify any problems Hx of Preganancy in last 3 N/A 12/30/24 12:09 Months Nurse Filling Out Transfusion [email or web address] 12/30/24 12:09 & Questions: Date: 12/30/24 12/30/24 12:09 Time: 12:10 12/30/24 12:09 Patient unable to answer at this time (ie. confused, unrespo /Reproduction History /Reproductive History - paper cup machine tender: /Reproductive Hx- paper cup machine tender Hx Now No 12/30/24 12:09 Gestational Age (in weeks): EDC: Hx Hx Para Hx Section SAB No 12/30/24 12:09 Active Medications Active Medications: Current Medications Generic Name Dose Route Start Last Admin Trade Name Freq PRN Reason Stop Dose Admin Lactated Ringer's 1,000 mls @ 15 mls/hr 12/31/24 06:45 IV .Q48H ROSE PFSH Medical History Non-smoker Sleep apnea Cardiology follow-up encounter Hyperlipidemia NSTEMI (non-ST elevated myocardial infarction) (12/24/23) Low testosterone Hypertension Home Medications ?Medication ?Instructions ?Recorded ?Last Taken ?Type testosterone 2 - 3 pump topical DAILY 12/24/23 Unknown History nitroglycerin 0.4 mg sublingual 0.4 mg sublingual Q5-15M PRN chest 01/13/24 Unknown Rx tablet (Nitrostat) pain #25 tabs amlodipine 5 mg tablet 5 mg PO DAILY #90 tabs 04/13/24 12/30/24 23:30 Rx atorvastatin 20 mg tablet 20 mg PO QHS #90 tabs 04/13/24 12/29/24 Rx lisinopril 20 mg tablet 20 mg PO QDAY #90 tabs 07/28/24 12/30/24 07:00 Rx atenolol 25 mg tablet 25 mg PO QDAY 11/24/24 12/30/24 23:30 History Allergy/AdvReac Type Severity Reaction Status Date / Time prochlorperazine (From AdvReac Other Verified 12/31/24 06:45 Compazine) Family History Brother No problems noted. Other CVA (cerebral vascular accident) Cancer Heart disease Hypertension Surgical History (Updated 12/30/24 @ 12:08 by Lelo Galeana) Hx of colonoscopy with polypectomy S/P LASIK surgery Social History household members: spouse housing: house Smoking Status: Never smoker alcohol intake: current alcohol intake frequency: holidays/special occasions only substance use type: does not use Review of Systems (Anesthesia) ROS Narrative System reviewed and no additional complaints, except as documented.
[2024-12-31] MEDS: Lactated Ringers 1,000 ML 15 ML IV (06:56)
--- NOTE | 2024-12-31 07:16 | PCM.HP.STD ---
HPI - General General Date of Admission: 12/31/24 Date of Service: 12/31/24 Chief Complaint: Colonoscopy HPI Narrative ABDELRAHMAN CHA, is a 54 M who presents for colonoscopy. Patient has a history of previous polyps. His last colonoscopy was around 10 to 15 years ago. His father had polyps as well as ulcerative colitis. Patient denies any new issues or complaints. He denies any black or tarry stools. No blood in his stools. No abdominal pain [facility] Medical History Non-smoker Sleep apnea Cardiology follow-up encounter Hyperlipidemia NSTEMI (non-ST elevated myocardial infarction) (12/24/23) Low testosterone Hypertension Home Medications ?Medication ?Instructions ?Recorded ?Last Taken ?Type testosterone 2 - 3 pump topical DAILY 12/24/23 Unknown History nitroglycerin 0.4 mg sublingual 0.4 mg sublingual Q5-15M PRN chest 01/13/24 Unknown Rx tablet (Nitrostat) pain #25 tabs amlodipine 5 mg tablet 5 mg PO DAILY #90 tabs 04/13/24 12/30/24 23:30 Rx atorvastatin 20 mg tablet 20 mg PO QHS #90 tabs 04/13/24 12/29/24 Rx lisinopril 20 mg tablet 20 mg PO QDAY #90 tabs 07/28/24 12/30/24 07:00 Rx atenolol 25 mg tablet 25 mg PO QDAY 11/24/24 12/30/24 23:30 History Allergy/AdvReac Type Severity Reaction Status Date / Time prochlorperazine (From AdvReac Other Verified 12/31/24 06:45 Compazine) Family History Brother No problems noted. Other CVA (cerebral vascular accident) Cancer Heart disease Hypertension Surgical History (Updated 12/30/24 @ 12:08 by Lelo Galeana) Hx of colonoscopy with polypectomy S/P LASIK surgery Social History household members: spouse housing: house Smoking Status: Never smoker alcohol intake: current alcohol intake frequency: holidays/special occasions only substance use type: does not use Vital Signs Vital Signs Vital Signs: 12/31/24 06:49 12/31/24 06:50 12/31/24 06:54 Temperature 97.0 F L 97.0 F L Temperature Source Temporal Pulse Rate 70 70 Respiratory Rate 16 16 Respiratory Pattern Normal Blood Pressure 97/64 97/64 Blood Pressure Mean 75 Blood Pressure Source Monitor Blood Pressure Position Semi-Fowlers Blood Pressure Location Right Arm Pulse Ox 97 97 Oxygen Delivery Method Room Air Weight Weight: 205 lb 3.2 oz Body Mass Index (BMI) 38.7 Physical Exam Const alert, oriented x3 and no apparent distress Assessment & Plan Assessment/Plan (1) Encounter for screening for malignant neoplasm of colon: PLAN: Plan The patient is a 54-year-old male in need of a colonoscopy. We discussed the details of the planned procedure including risk benefits and alternatives and he wishes to proceed. This will begin momentarily Charges/Coding Visit Charges Inpatient E&M: 40744 Init Hosp L3
--- NOTE | 2024-12-31 07:30 | COLBX_PTH ---
PATIENT: ABDELRAHMAN CHA LOC: EN U#:[id number] AGE/SX: 54/M ROOM: RE12/31/[address]: Dr. Jose E Varner MD : 1970 BED: DIS: 12/31/2024 SPEC #: [id number] RECD: 12/31/24 08:14 STATUS: NELLY MONACO #: [id number] DONNY: 12/31/24 07:[address]: Jose E Varner DEPT: SURGICAL PATHOLOGY RECD BY: David Carey ENTERED: 12/31/24 10:09 SP TYPE: COLON BX OTHR DR: Dr. Jamarcus Tracey, Tissues: A - Rectum, NOS Procedures: Surgery Specimen Level III HEADER OPERATION: Colonoscopy with polypectomy PRE-OP DIAGNOSIS: Encounter for screening for malignant neoplasm of colon TISSUE SUBMITTED: A- Rectum - polyp MICROSCOPIC DIAGNOSIS A. Rectum, polyp, biopsy: Polypoid squamous mucosa with dilated and congested blood vessels, consistent with hemorrhoid. MICROSCOPIC DESCRIPTION Slides are reviewed. GROSS DESCRIPTION A. Received in formalin labeled with the patient's name and date of . Designated as rectum polyp is a 0.8 x 0.5 x 0.4 cm pink to dark red, granular polypoid tissue fragment. The resection margin is inked black and the specimen is bisected. Entirely submitted in 1 cassette. [place] [id number]
--- NOTE | 2024-12-31 07:59 | PCM.POST.ANE ---
Anesthesia: Postop Eval I Current Vital Signs Temperature: 97.1 F Pulse Rate: 69 Blood Pressure: 100/62 Respiratory Rate: 20 Pulse Ox: 97 Assessment Airway patent: Yes Spontaneous unlabored respirations: Yes nausea: No Vomiting: No Anesthesia Complication: No Fluid Hydration Crystalloid volume administer (ml): 400 Total IV fluid infused: 400 Progress Note Anesthesia document: Postop Eval 1 completed: Yes
--- NOTE | 2024-12-31 08:02 | OP.COLON_ITS ---
Patient Name: Tony Jordan Procedure Date: 12/31/2024 7:10 AM Date of : 1970 Age: 54 Procedure: Colonoscopy Indications: Colon cancer screening in patient at increased risk: Family history of 1st-degree relative with colon polyps Providers: Jose E Varner MD Referring MD: Jamarcus Tracey Medicines: Monitored Anesthesia Care Patient Profile: Refer to note in patient chart for documentation of history and physical. Last Colonoscopy: more than 10 years ago. Complications: No immediate complications. Estimated blood loss: None. Procedure: Pre-Anesthesia Assessment: - Prior to the procedure, a History and Physical was performed, and patient medications and allergies were reviewed. The patient's tolerance of previous anesthesia was also reviewed. The risks and benefits of the procedure and the sedation options and risks were discussed with the patient. All questions were answered, and informed consent was obtained. Prior Anticoagulants: The patient has taken no anticoagulant or antiplatelet agents. ASA Grade Assessment: II - A patient with mild systemic disease. After reviewing the risks and benefits, the patient was deemed in satisfactory condition to undergo the procedure. After I obtained informed consent, the scope was passed under direct vision. Throughout the procedure, the patient's blood pressure, pulse, and oxygen saturations were monitored continuously. The adult colonoscope was introduced through the anus and advanced to the cecum, identified by appendiceal orifice and ileocecal valve. The ileocecal valve, appendiceal orifice, and rectum were photographed. The entire colon was well visualized. The colonoscopy was performed without difficulty. The patient tolerated the procedure well. The quality of the bowel preparation was good. Moderate Sedation: See the other procedure note for documentation of moderate sedation with intraservice time. Scope In: 7:33:33 AM Scope Withdrawal Time 0 hours 14 minutes 1 second Scope Out: 7:52:36 AM Total Procedure Duration Time 0 hours 19 minutes 3 seconds Findings: The perianal and digital rectal examinations were normal. Internal hemorrhoids were found during retroflexion. The hemorrhoids were mild. A 4 mm polyp was found in the distal rectum. The polyp was semi-pedunculated. The polyp was removed with a hot snare. Resection and retrieval were complete. Verification of patient identification for the specimen was done by the nurse using the patient's name, date and medical record number. Estimated blood loss was minimal. The exam was otherwise without abnormality on direct and retroflexion views. Impression: - Internal hemorrhoids. - One 4 mm polyp in the distal rectum, removed with a hot snare. Resected and retrieved. - The examination was otherwise normal on direct and retroflexion views. Recommendation: - Discharge patient to home (ambulatory). - High fiber diet. - Await pathology results. - Repeat colonoscopy in 5-10 years for surveillance based on pathology results. - Return to my office PRN. - Continue present medications. Procedure Code(s): --- Professional --- 78951, Colonoscopy, flexible; with removal of tumor(s), polyp(s), or other lesion(s) by snare technique Diagnosis Code(s): --- Professional --- Z83.71, Family history of colonic polyps D12.8, Benign neoplasm of rectum K64.8, Other hemorrhoids CPT copyright 2021 [employer]. All rights reserved. The codes documented in this report are preliminary and upon research animal facility supervisor review may be revised to meet current compliance requirements. Jose E Varner MD 12/31/2024 8:01:53 AM This report has been signed electronically. Number of Addenda: 0 Note Initiated On: 12/31/2024 7:10 AM
--- NOTE | 2024-12-31 08:02 | OP.PROVAT_ITS ---
12/31/2024 Jamarcus Tracey [address] [place] [address] Re : Colonoscopy procedure for Tony Jordan Dear Dr. Tracey This procedure was performed on Tuesday, December 31, 2024. My impressions and recommendations are as follows: Impressions : - Internal hemorrhoids. - One 4 mm polyp in the distal rectum, removed with a hot snare. Resected and retrieved. - The examination was otherwise normal on direct and retroflexion views. Recommendations : - Discharge patient to home (ambulatory). - High fiber diet. - Await pathology results. - Repeat colonoscopy in 5-10 years for surveillance based on pathology results. - Return to my office PRN. - Continue present medications. My findings are described in the full procedure note, which is enclosed. If I can be of further assistance, please feel free to contact me at . Sincerely, Jose E Varner MD 12/31/2024 8:01:53 AM This report has been signed electronically.
--- NOTE | 2024-12-31 08:37 | POSTOPAN2_ITS ---
Anesthesia Postop Eval I Sum Postop Eval Completion status Anesthesia document: Postop Eval 1 completed: Yes Anesthesia Postop Eval I Summary Anesthesia Postop Eval I Summary: Anesthesia Postop Eval I: Assessment Summary Airway patent Yes 12/31/24 07:59 PASTRY CHEF.CSIR Spontaneous unlabored Yes 12/31/24 07:59 PASTRY CHEF.CSIR respirations Mental status nausea No 12/31/24 07:59 PASTRY CHEF.CSIR Vomiting No 12/31/24 07:59 PASTRY CHEF.CSIR Anesthesia Postop Eval I: Fluid Summary Crystalloid volume administer 400 12/31/24 07:59 PASTRY CHEF.CSIR (ml) Colloids volume administered ( ml) Blood Product volume administered (ml) Total IV fluid infused 400 12/31/24 07:59 PASTRY CHEF.CSIR Anesthesia Postop Eval I: Summary Notes Anesthesia Complication No 12/31/24 07:59 PASTRY CHEF.CSIR Anesthesia Complication Comment: Post-operative progress note Anesthesia: Postop Eval II Evaluation Mental status: Awake Pain Level: 0 nausea: No Vomiting: No
--- NOTE | 2024-12-31 08:37 | PCM.POSTANE2 ---
Anesthesia Postop Eval I Sum Postop Eval Completion status Anesthesia document: Postop Eval 1 completed: Yes Anesthesia Postop Eval I Summary Anesthesia Postop Eval I Summary: Anesthesia Postop Eval I: Assessment Summary Airway patent Yes 12/31/24 07:59 CALL CENTER SPECIALIST.CSIR Spontaneous unlabored Yes 12/31/24 07:59 CALL CENTER SPECIALIST.CSIR respirations Mental status nausea No 12/31/24 07:59 CALL CENTER SPECIALIST.CSIR Vomiting No 12/31/24 07:59 CALL CENTER SPECIALIST.CSIR Anesthesia Postop Eval I: Fluid Summary Crystalloid volume administer 400 12/31/24 07:59 CALL CENTER SPECIALIST.CSIR (ml) Colloids volume administered ( ml) Blood Product volume administered (ml) Total IV fluid infused 400 12/31/24 07:59 CALL CENTER SPECIALIST.CSIR Anesthesia Postop Eval I: Summary Notes Anesthesia Complication No 12/31/24 07:59 CALL CENTER SPECIALIST.CSIR Anesthesia Complication Comment: Post-operative progress note Anesthesia: Postop Eval II Evaluation Mental status: Awake Pain Level: 0 nausea: No Vomiting: No
== END 2024-12-31 08:48 | disposition home or self-care (01) ==
LOC: EN 06:29 → AC 06:30
PROVIDERS: PCP Family Medicine; Referring Provider Family Medicine; Visit Provider Surgery
PROC: 0DJD8ZZ Inspection of Lower Intestinal Tract, Via Natural or Artificial Opening Endoscopic (ICD-10-PCS; CPT 45378; principal; 2024-12-31 07:25)
DX: Z12.11 Encounter for screening for malignant neoplasm of colon (principal); K64.8 Other hemorrhoids; E78.5 Hyperlipidemia, unspecified; I10 Essential (primary) hypertension; Z79.899 Other long term (current) drug therapy; Z86.0100 Personal history of colon polyps, unspecified
CPT/HCPCS: 45385; 88304; 88305; J2405